=== PATIENT | female | born 1950 | race Caucasian/White ===

== ENCOUNTER → 2017-08-01 | Day surgery (SDC) | payer OTHER, MEDICARE | END | disposition home or self-care (01) | LOC: FIMAGING 14:50 | PROVIDERS: ATTEND Radiology Diagnostic Radiology | PROC: 02HV33Z Insertion of Infusion Device into Superior Vena Cava, Percutaneous Approach (ICD-10-PCS; principal; 2017-08-01) | DX: C21.0 Malignant neoplasm of anus, unspecified (principal) | CPT/HCPCS: 36569; 77001; C1751 ==

== ENCOUNTER 2017-08-30 20:15 | Inpatient (IN) | payer OTHER, MEDICARE ==
[2017-08-30] MEDS ORDERED: NS 1,000 ML IV ONE (20:50)
--- NOTE | 2017-08-30 20:58 | EDPHY ---
H & P Stated Complaint: Snt by [place] physician, chills, fever, abd pain, cramps. Time Seen by Provider: 08/30/17 20:40 HPI/ROS: CHIEF COMPLAINT: Diffuse abdominal pain HISTORY OF PRESENT ILLNESS: Patient is a 67-year-old female with a history of anal cancer currently receiving chemo and radiation therapy with Dr. Moreland. She has had chronic diffuse abdominal pain for the last several weeks that she describes as crampy and gassy. Over last 2 days however she is also became fatigued developed chills and today had a temperature max 100.8. She told Dr. Self who is on-call for [facility] who recommended she come to the ER to be evaluated. She is likely neutropenic. 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 She is due for her next IVIG infusion on Sunday. No vomiting. No diarrhea. No chest pain or shortness of breath. REVIEW OF SYSTEMS: Constitutional: See HPI EENTM: denies: blurred vision, double vision, nose congestion Respiratory: denies: cough, shortness of breath Cardiac: denies: chest pain, irregular heart rate, lightheadedness, palpitations Gastrointestinal/Abdominal: See HPI Genitourinary: denies: dysuria, frequency, hematuria, pain Musculoskeletal: denies: joint pain, muscle pain Skin: denies: lesions, rash, jaundice, bruising Neurological: denies: headache, numbness, paresthesia, tingling, dizziness, weakness Hematologic/Lymphatic: denies: blood clots, easy bleeding, easy bruising Immunologic/allergic: denies: HIV/AIDS, transplant EXAM: GENERAL: Well-appearing, well-nourished and in no acute distress. HEAD: Atraumatic, normocephalic. EYES: Pupils equal round and reactive to light, extraocular movements intact, sclera anicteric, conjunctiva are normal. ENT: TMs normal, nares patent, oropharynx clear without exudates. Moist mucous membranes. NECK: Normal range of motion, supple without lymphadenopathy or JVD. LUNGS: Breath sounds clear to auscultation bilaterally and equal. No wheezes rales or rhonchi. HEART: Regular rate and rhythm without murmurs, rubs or gallops. ABDOMEN: Mild diffuse tenderness, normoactive bowel sounds. No guarding, no rebound. No masses appreciated. BACK: No CVA tenderness, no spinal tenderness, step-offs or deformities EXTREMITIES: Normal range of motion, no pitting or edema. No clubbing or cyanosis. NEUROLOGICAL: Cranial nerves II through XII grossly intact. Normal speech, normal gait. 5/5 strength, normal movement in all extremities, normal sensation PSYCH: Normal mood, normal affect. SKIN: Warm, dry, normal turgor, no visible rashes or lesions. Source: Patient Exam Limitations: No limitations - Personal History Current Tetanus/Diphtheria Vaccine: Unsure Current Tetanus Diphtheria and Acellular Pertussis (TDAP): Unsure - Medical/Surgical History Hx Asthma: No Hx Chronic Respiratory Disease: No Hx Diabetes: Yes Hx Cardiac Disease: No Hx Renal Disease: No Hx Cirrhosis: No Hx Alcoholism: No Hx HIV/AIDS: No Hx Splenectomy or Spleen Trauma: No Other PMH: Anal CA, Type 1 DM, Psoriasis, panreatic insfficiency, hypothyroid, Immune defficiency. - Family History Significant Family History: No pertinent family hx - Social History Smoking Status: Former smoker Constitutional: Initial Vital Signs Temperature (C) 37.6 C 08/30/17 20:24 Heart Rate 124 H 08/30/17 20:24 Respiratory Rate 18 08/30/17 20:24 Blood Pressure 157/60 H 08/30/17 20:24 O2 Sat (%) 97 08/30/17 20:24 O2 Delivery Mode Room Air Allergies/Adverse Reactions: cefdinir Allergy (Verified 08/31/17 08:35) Other-Enter Comments erythromycin base [From Erythrocin] Allergy (Verified 08/31/17 08:37) Other-Enter Comments fentanyl Allergy (Verified 08/31/17 08:38) Other-Enter Comments insulin glargine [From Lantus] Allergy (Verified 08/31/17 08:37) Other-Enter Comments insulin lispro [From Humalog] Allergy (Verified 08/31/17 08:37) Other-Enter Comments NSAIDS (Non-Steroidal Anti-Inflamma Allergy (Verified 08/31/17 08:33) Other-Enter Comments Opioids - Morphine Analogues Allergy (Verified 08/31/17 08:35) Vomiting Penicillins Allergy (Verified 08/31/17 08:33) Hives rofecoxib [From Vioxx] Allergy (Verified 08/31/17 08:38) Other-Enter Comments Sulfa (Sulfonamide Antibiotics) Allergy (Verified 08/31/17 08:35) Hives valacyclovir [From Valtrex] Allergy (Verified 08/31/17 08:38) Unknown Home Medications: Medication Instructions Recorded Baclofen [Baclofen 10 mg (*)] 5 mg PO TID PRN 08/31/17 Cortisol Sr Compounded 2 cap PO DAILY@12 08/31/17 Cortisol Sr Compounded 3 cap PO DAILY 08/31/17 Insulin Aspart [novoLOG] 0 - 9 unit SQ QID 08/31/17 Insulin Detemir [Levemir] 9 unit SQ DAILY 08/31/17 Levothyroxine [Synthroid 75 mcg 75 mcg PO DAILY06 08/31/17 (*)] Lipase/Protease/Amylase [Zenpep Dr 2 each PO TID 08/31/17 25,000 Units Capsule] Prochlorperazine Maleate 10 mg PO Q6H PRN 08/31/17 [Compazine 10mg (*)] T3 Sr Compounded 2 cap PO BID 08/31/17 Medical Decision Making - Diagnostics Imaging: Discussed imaging studies w/ call center support consultant Radiologist ED Course/Re-evaluation: 10:[address] and lab findings with Dr. 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 Will admit her and start her on meropenem. She has a penicillin allergy list but states that she does not have any problems with the newer penicillins. 10:15 p.m. I spoke with Dr. Arrington who will admit and requests surgical consultation. 10:20 p.m. I discussed the case with Dr. Jackson who will consult. Differential Diagnosis: Partial list of the Differential diagnosis considered include but were not limited to; gastritis, typhlitis and although unlikely based on the history and physical exam, I also considered ischemia, obstruction, perforation. - Data Points Laboratory Results: Laboratory Results 08/31/17 05:40 08/31/17 05:40 Microbiology Results: MICROBIOLOGY 08/31/17 08:45 Stool Gastrointestinal Tract Panel (PCR) - Final No Organism Detected Medications Given: Potassium Chloride/Sodium Chloride (Ns W/ 20 Kcl/L) 1,000 mls @ 100 mls/hr IV CONT DAVIE Stop: 02/26/18 22:29 Last Admin: 09/01/17 02:58 Dose: 1,000 mls Meropenem 1 gm/ Sterile Water 20 mls @ 240 mls/hr IV Q8HRS DAVIE PRN Reason: Protocol Stop: 09/30/17 05:59 Last Admin: 09/01/17 05:00 Dose: 20 mls Levothyroxine Sodium (Synthroid) 75 mcg PO DAILY06 DAVIE Stop: 02/28/18 05:59 Last Admin: 09/01/17 05:02 Dose: 75 mcg Miscellaneous Medication (Cortisol Sr Compounded) 2 cap PO DAILY@12 DAVIE Stop: 02/27/18 11:59 Last Admin: 08/31/17 12:20 Dose: 2 cap Miscellaneous Medication (Cortisol Sr Compounded) 3 cap PO DAILY DAVIE Stop: 02/28/18 08:59 Last Admin: 09/01/17 05:03 Dose: 3 cap Miscellaneous Medication (Insulin Detemir [Levemir]) 9 unit SQ DAILY DAVIE Stop: 02/28/18 08:59 Last Admin: 09/01/17 05:03 Dose: 9 units Miscellaneous Medication (T3 Sr Compounded) 2 cap PO BID DAVIE Stop: 02/27/18 20:59 Last Admin: 09/01/17 05:02 Dose: 2 cap Phenazopyridine HCl (Pyridium) 100 mg PO PC PRN PRN Reason: pain Stop: 02/28/18 08:59 Last Admin: 09/01/17 02:57 Dose: 100 mg Discontinued Medications Sodium Chloride (Ns) 1,000 mls @ 0 mls/hr IV EDNOW ONE; Wide Open PRN Reason: Protocol Stop: 08/30/17 20:51 Last Admin: 08/30/17 21:16 Dose: 1,000 mls Meropenem 1 gm/ Sterile Water 20 mls @ 240 mls/hr IV EDNOW ONE PRN Reason: Protocol Stop: 08/30/17 22:18 Last Admin: 08/30/17 22:54 Dose: 20 mls Sodium Chloride (Ns) 500 mls @ 0 mls/hr IV ONCE ONE PRN Reason: Wide Open Stop: 08/30/17 22:44 Last Admin: 08/31/17 00:18 Dose: 500 mls Magnesium Sulfate/Dextrose (Magnesium Sulf 1 Gm (Premix)) 100 mls @ 100 mls/hr IV ONCE ONE Stop: 08/31/17 13:08 Last Admin: 08/31/17 12:19 Dose: 100 mls Potassium Chloride 10 meq/ (Sodium Chloride) 100 mls @ 100 mls/hr IV Q1H DAVIE Stop: 08/31/17 16:29 Last Admin: 08/31/17 18:12 Dose: 100 mls Departure - Departure Disposition: [facility] Inpatient Acute Clinical Impression: Neutropenic fever Ileitis, terminal Qualifiers: Digestive disease complication type: without complication Qualified Code(s): K50.00 - Crohn's disease of small intestine without complications Condition: Fair
[2017-08-30 21:11] LABS: PLATELET COUNT 102 10^3/uL (150-400)
[2017-08-30] MEDS ORDERED: IOPAMIDOL (ISOVUE-300) 100 ML BTL ONE (21:11)
[2017-08-30 21:18] LABS: INR 1.06 (0.83-1.16)
[2017-08-30] MEDS ORDERED: MEROPENEM 1 GM in STERILE WATER INJ 20 ML IV ONE (22:14)
[2017-08-30] MEDS ORDERED: ONDANSETRON DISINTEGRATING 4 MG TAB PO PRN (22:17)
[2017-08-30] MEDS ORDERED: ONDANSETRON 4 MG/2 ML VIAL IVP PRN (22:17)
[2017-08-30] MEDS ORDERED: ACETAMINOPHEN 325 MG TAB PO PRN (22:17)
[2017-08-30] MEDS ORDERED: NS 500 ML IV ONE (22:43)
--- NOTE | 2017-08-30 23:18 | PDGENHP ---
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 She recently started treatment with 5FU/MMC and XRT. She had severe side-effects from this including mucositis and rash. Then, over the last 3 days, she began to notice abdominal pain. Today she developed a T of 100.8 and was advised to come to the ED by her oncologist. She has chronic diarrhea and bloody stools and denies any significant changes in these symptoms. In the ED work-up was notable for neutropenia and ileal thickening on CT. History Information - Allergies/Home Medication List Allergies/Adverse Reactions: cefdinir Allergy (Verified 08/30/17 20:32) codeine Allergy (Verified 08/30/17 20:32) erythromycin base [From Erythrocin] Allergy (Verified 08/30/17 20:32) fentanyl Allergy (Verified 08/30/17 20:32) hydrocodone Allergy (Verified 08/30/17 20:32) hydromorphone Allergy (Verified 08/30/17 20:32) insulin glargine [From Lantus] Allergy (Verified 08/30/17 20:32) insulin lispro [From Humalog] Allergy (Verified 08/30/17 20:32) morphine Allergy (Verified 08/30/17 20:32) NSAIDS (Non-Steroidal Anti-Inflamma Allergy (Verified 08/30/17 20:32) oxycodone Allergy (Verified 08/30/17 20:32) Penicillins Allergy (Verified 08/30/17 20:32) rofecoxib [From Vioxx] Allergy (Verified 08/30/17 20:32) Sulfa (Sulfonamide Antibiotics) Allergy (Verified 08/30/17 20:32) valacyclovir [From Valtrex] Allergy (Verified 08/30/17 20:32) Home Medications: Baclofen 10 mg (*) 08/30/17 [Last Taken Unknown] Cortef 08/30/17 [Last Taken Unknown] Estradiol 08/30/17 [Last Taken Unknown] Gammagard Liquid 08/30/17 [Last Taken Unknown] Levemir 08/30/17 [Last Taken Unknown] Synthroid 08/30/17 [Last Taken Unknown] Zenpep Dr 25,000 Unit Capsule 08/30/17 [Last Taken Unknown] novoLOG 08/30/17 [Last Taken Unknown] I have personally reviewed and updated: family history, medical history - Past Medical History cancer, diabetes type 1 Additional medical history: CVID. Psoriasis - Surgical History Reports: hysterectomy - Family History Positive for: cancer, diabetes type I Additional family history: Gout. PUD - Social History Smoking Status: Former smoker Review of Systems Review of Systems: ROS: 10pt was reviewed & negative except for what was stated in HPI & below Physical Exam Physical Exam: Temp Pulse Resp BP Pulse Ox 37.6 C 106 H 20 151/63 H 97 08/30/17 20:24 08/30/17 22:00 08/30/17 22:00 08/30/17 22:00 08/30/17 22:00 Constitutional: appears nourished, uncomfortable Eyes: PERRL, EOMI Ears, Nose, Mouth, Throat: moist mucous membranes, no oral mucosal ulcers Cardiovascular: no murmur, rub, or gallop, tachycardia Respiratory: no respiratory distress, no rales or rhonchi Gastrointestinal: normoactive bowel sounds, tenderness (LLQ, RLQ) Skin: warm, normal color Musculoskeletal: full muscle strength, no muscle tenderness Neurologic: AAOx3, CN II-XII Intact Psychiatric: interacting appropriately, not anxious Lab Data & Imaging Review 08/30/17 21:00 08/30/17 21:00 WBC 1.99 10^3/uL (3.80-9.50) L 08/30/17 21:00 RBC 3.49 10^6/uL (4.18-5.33) L 08/30/17 21:00 Hgb 11.1 g/dL (12.6-16.3) L 08/30/17 21:00 Hct 31.6 % (38.0-47.0) L 08/30/17 21:00 MCV 90.5 fL (81.5-99.8) 08/30/17 21:00 MCH 31.8 pg (27.9-34.1) 08/30/17 21:00 MCHC 35.1 g/dL (32.4-36.7) 08/30/17 21:00 RDW 13.5 % (11.5-15.2) 08/30/17 21:00 Plt Count 102 10^3/uL (150-400) L 08/30/17 21:00 MPV 9.4 fL (8.7-11.7) 08/30/17 21:00 Neut % (Auto) Not Reported 08/30/17 21:00 Lymph % (Auto) Not Reported 08/30/17 21:00 [place] % (Auto) Not Reported 08/30/17 21:00 Eos % (Auto) Not Reported 08/30/17 21:00 Baso % (Auto) Not Reported 08/30/17 21:00 Nucleat RBC Rel Count 0.0 % (0.0-0.2) 08/30/17 21:00 Absolute Neuts (auto) Not Reported 08/30/17 21:00 Absolute Lymphs (auto) Not Reported 08/30/17 21:00 Absolute Monos (auto) Not Reported 08/30/17 21:00 Absolute Eos (auto) Not Reported 08/30/17 21:00 Absolute Basos (auto) Not Reported 08/30/17 21:00 Absolute Nucleated RBC 0.00 10^3/uL (0-0.01) 08/30/17 21:00 Immature Gran % Not Reported 08/30/17 21:00 Seg Neutrophils % 20 % 08/30/17 21:00 Band Neutrophils % 31 % 08/30/17 21:00 Lymphocytes % 34 % 08/30/17 21:00 Monocytes % 13 % 08/30/17 21:00 Eosinophils % 2 % 08/30/17 21:00 Immature Gran # Not Reported 08/30/17 21:00 Absolute Seg Neuts 0.40 10^/uL (1.70-6.50) L 08/30/17 21:00 Absolute Band Neuts 0.62 10^3/uL (0.00-0.70) 08/30/17 21:00 Absolute Lymphocytes 0.68 10^3/uL (1.00-3.00) L 08/30/17 21:00 Absolute Monocytes 0.26 10^3/uL (0.30-0.80) L 08/30/17 21:00 Absolute Eosinophils 0.04 10^3/uL (0.03-0.40) 08/30/17 21:00 Platelet Estimate DECREASED (ADEQ) L 08/30/17 21:00 Polychromasia 1+ H 08/30/17 21:00 PT 14.0 SEC (12.0-15.0) 08/30/17 21:00 INR 1.06 (0.83-1.16) 08/30/17 21:00 APTT 30.4 SEC (23.0-38.0) 08/30/17 21:00 VBG Lactic Acid 0.8 mmol/L (0.7-2.1) 08/30/17 21:00 Sodium 138 mEq/L (135-145) 08/30/17 21:00 Potassium 3.0 mEq/L (3.5-5.2) L 08/30/17 21:00 Chloride 104 mEq/L (97-110) 08/30/17 21:00 Carbon Dioxide 25 mEq/l (22-31) 08/30/17 21:00 Anion Gap 9 mEq/L (8-16) 08/30/17 21:00 BUN 7 mg/dL (7-23) 08/30/17 21:00 Creatinine 0.4 mg/dL (0.6-1.0) L 08/30/17 21:00 Estimated GFR > 60 08/30/17 21:00 Glucose 114 mg/dL (70-100) H 08/30/17 21:00 Calcium 8.1 mg/dL (8.5-10.4) L 08/30/17 21:00 Total Bilirubin 0.5 mg/dL (0.1-1.4) 08/30/17 21:00 Conjugated Bilirubin 0.1 mg/dL (0.0-0.5) 08/30/17 21:00 Unconjugated Bilirubin 0.4 mg/dL (0.0-1.1) 08/30/17 21:00 AST 13 IU/L (14-46) L 08/30/17 21:00 ALT 29 IU/L (9-52) 08/30/17 21:00 Alkaline Phosphatase 39 IU/L (38-126) 08/30/17 21:00 Total Protein 4.7 g/dL (6.3-8.2) L 08/30/17 21:00 Albumin 2.4 g/dL (3.5-5.0) L 08/30/17 21:00 Lipase 30 IU/L (23-300) 08/30/17 21:00 Urine Color YELLOW 02/22/18 22:09 Urine Appearance CLEAR 08/30/17 22:09 Urine pH 6.0 (5.0-7.5) 08/30/17 22:09 Ur Specific [place] 1.009 (1.002-1.030) 08/30/17 22:09 Urine Protein NEGATIVE (NEGATIVE) 08/30/17 22:09 Urine Ketones 2+ (NEGATIVE) H 08/30/17 22:09 Urine Blood NEGATIVE (NEGATIVE) 08/30/17 22:09 Urine Nitrate NEGATIVE (NEGATIVE) 08/30/17 22:09 Urine Bilirubin NEGATIVE (NEGATIVE) 08/30/17 22:09 Urine Urobilinogen NEGATIVE EU (0.2-1.0) 08/30/17 22:09 Ur Leukocyte Esterase NEGATIVE (NEGATIVE) 08/30/17 22:09 Urine RBC 1-3 /hpf (0-3) 08/30/17 22:09 Urine WBC 1-3 /hpf (0-3) 08/30/17 22:09 Ur Epithelial Cells TRACE /lpf (NONE-1+) 08/30/17 22:09 Urine Glucose NEGATIVE (NEGATIVE) 08/30/17 22:09 Imaging Review: Imaging Impressions Abdomen/Pelvis CT 08/30/17 20:51 Impression: 1. Long segment of significant bowel wall thickening in the distal ileum, which could be infectious or inflammatory. Question also some mild inflammatory change in the cecum. Ischemia cannot be excluded. No evidence for free intraperitoneal air or abscess. 2. Thickening in the region of the rectum and indistinct tissue planes, which could be related to the history given of a rectal carcinoma. 3. Other chronic findings, as above. Results called and discussed with Raulito Marcano M.D., on August 30, 2017 at 2150. E:amm Assessment & Plan Assessment: 67 yo F w/ hx anal squamous cell CA and T1DM presents with neutropenic fever and ileal thickening on CT. Plan: 1. Neutropenic fever - Possibly 2/[address] findings of ileal thickening. She denies any symptoms aside from abdominal pain at this time. - Blood cultures, UA, GI PCR - Meropenem 1 g IV q8h per Onc - Oncology consulted, appreciate assistance 2. Ileitis - Possible neutropenic enterocolitis as mentioned above. No evidence of free peritoneal air or abscess. - NPO, mIVF - GI PCR - Surgery consulted, appreciate assistance 3. Anal squamous cell CA - Recently started treatment with 5FU/MMC + XRT. Followed by Dr. Moreland and Dr. Self. - Oncology service consulted, appreciate assistance 4. T1DM - Patient manages this intensively (checks BG 8x daily) with insulin detemir and Novolog on a sliding scale basis. - Will order ACHS and PRN BG checks - Needs med reconciliation and will let patient direct insulin dosing per her wishes 5. Adrenal insufficiency - Patient takes specially formulated hydrocortisone XR as outpatient (30 mg @ 6 AM, 20 mg @ noon). - Will have patient continue home meds - Low threshold for stress dose steroids, currently hemodynamically stable Diet - NPO, mIVF Code - Full Ppx - SCDs Dispo - Admit under observation status
--- NOTE | 2017-08-31 01:02 | GCON ---
[f rep st] CONSULTATION DATE OF CONSULTATION: 08/30/2017 CHIEF COMPLAINT: Abdominal pain. HISTORY OF PRESENT ILLNESS: This is a 67-year-old female, who presents to the emergency department w ith acute on chronic abdominal pain. Briefly, the patient is currently receiving treatment for an an al cancer that was successfully debulked. Per the patient's report, it sounds like she presented to a surgeon in July for what she thought was a hemorrhoid. The surgeon quickly made the diagnosis o f anal cancer, subsequently had debulking, and is now undergoing chemotherapy and radiation. She had what appears to be an induction chemotherapy performed in the first week of August and since then has been receiving 5 days a week radiation treatment. She has had multiple issues, including intoler ance to the radiation, as well as multiple oral ulcers throughout her GI tract. She endorses having abdominal pain pretty much all the time that she relates a cramping secondary to the diarrhea, which she has had essentially since receiving the chemotherapy earlier this month. She states that over th e last few days this has gotten acutely worse to the point where the cramps are worse, more excruciat ing. She states that her last loose stool was yesterday, and that she has not been passing as much g as as previously. In addition to the pain, she also endorses fairly rigorous chills, which she state s are new, as well. 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 PAST MEDICAL HISTORY: 1. CVID. 2. Diabetes. 3. Anal cancer. 4. Disordered uterine bleeding. PAST SURGICAL HISTORY: Multiple CANVAS REPAIRER procedures in the past, ultimately leading to a complete hystere ctomy. She had an anal tumor removal from a rectal approach in July of this year. CURRENT MEDICATIONS: Include baclofen, Cortef, estradiol, Gammagard, Levemir, Synthroid, Zenpep, and NovoLog. ALLERGIES: Extensive, to cefdinir, codeine, erythromycin, fentanyl, hydrocodone, hydromorphone, insu willi glargine, insulin lispro, morphine, NSAIDs, oxycodone, penicillins, rofecoxib, sulfa, and valacyc lovir. FAMILY HISTORY: No family history of inflammatory bowel disease, including Crohn's and ulcerative co litis. SOCIAL HISTORY: Is here tonight with her partner and durable power of attorney law clerk. Denies illicit drug use. REVIEW OF SYSTEMS: A full 10-point review was performed. PHYSICAL EXAMINATION: VITAL SIGNS: Temperature 37.6, blood pressure 151/63, heart rate is 106, and she is 97% on room air. CONSTITUTIONAL: She is in no apparent distress. She otherwise appears comf ortable. EYES: Her pupils are equal, round, and reactive to light and accommodation. Her extraocul ar movements are intact. EARS, NOSE, MOUTH, THROAT: Multiple oral mucosal ulcers. Her mucous membr anes are dry. Her hearing is normal. CARDIOVASCULAR: She is tachycardic without murmur. RESPIRATO RY: She has no respiratory distress. No rales, rhonchi, and she is otherwise clear. GI: Multiple previous abdominal scars. She has normoactive bowel sounds. She is tender to palpation just beneath the umbilicus. No rebound tenderness or guarding are appreciated. SKIN: Warm. Normal color. No rashes. MUSCULOSKELETAL: Full strength. No weakness. Normal joint range of motion. NEUROLOGIC: Alert and oriented x3. Cranial nerves 2-12 intact. No weakness or numbness. PSYCH: She is interac ting appropriately. She is not anxious or encephalopathic. LYMPHATIC/HEMATOLOGIC/IMMUNOLOGIC: No ce rvical or groin lymphadenopathy is appreciated. LABORATORY DATA: White blood cell count 1.9 with an ANC count of 400. H and H are low at 11 and 31. Coags are normal with an INR of 1.06. Lactic acid is 0.8. Chemistries remarkable for a low potass ium at 3, creatinine of 0.4, and a low total protein of 4.7 with an albumin of 2.4. IMAGING DATA: A CT scan, noncontrast, of the abdomen and pelvis, the images of which were personally reviewed. This shows some terminal ileal thickening, as well as some right colon thickening. No fr ee air. No free fluid. ASSESSMENT AND PLAN: 67-year-old female, neutropenic, currently receiving chemotherapy and radiation for an anal cancer with worsening abdominal pain. On my examination, the patient is currently not p eritoneal, although she is tender. I think more than likely this represents typhlitis. I have discu ssed it with the medicine attending. Will plan to proceed with conservative treatment, including not margo by mouth, intravenous fluid hydration, and intravenous antibiotics. Will continue to follow the patient closely. I anticipate that she will continue to improve. She states that even prior to ear lier today she has made vast improvement in her exam and overall feeling. I did tell her that if she were to acutely worsen, she would more than likely warrant operative exploration to ensure that she did not have any ischemia to the right colon and distal ileum. She understands this and wishes to pr oceed. /[id number]/MODL
[2017-08-31] MEDS: NS W/ 20 KCl/L 1,000 ML IV SCH ×2 (01:20→12:19)
[2017-08-31] MEDS: MEROPENEM 1 GM in STERILE WATER INJ 20 ML IV SCH ×3 (05:47→22:13)
[2017-08-31 05:58] LABS: PLATELET COUNT 99 10^3/uL (150-400)
[2017-08-31] MEDS ORDERED: BACLOFEN 10 MG TAB PO PRN (09:19)
[2017-08-31] MEDS ORDERED: PROCHLORPERAZINE MALEATE 10 MG TAB PO PRN (09:19)
--- NOTE | 2017-08-31 10:19 | SOAPPROG ---
SOAP Progress Note Assessment/Plan: Assessment/Plan: 67yo F, likely Typhlitis, neutropenia - VSS, HDS - pain is about the same, although her exam I would say is improved. She is soft , minimally tender and without rebound - cont NPO, IVF, IV abx. Tolerating conservative management 08/31/17 10:18 Subjective: c/o leg cramps Objective: Vital Signs Temp Pulse Resp BP Pulse Ox 37.6 C 106 H 18 139/63 H 97 08/31/17 08:47 08/31/17 08:47 08/31/17 08:47 08/31/17 08:47 08/31/17 08:47 Laboratory Results 08/31/17 05:40 08/31/17 05:40 08/30/17 08/31/17 09/01/17 05:59 05:59 05:59 Intake Total 1439 Balance 1439 PT 14.0 SEC (12.0-15.0) 08/30/17 21:00 INR 1.06 (0.83-1.16) 08/30/17 21:00 ICD10 Worksheet Patient Problems: Problems Problem Status Onset Ileitis, terminal Acute Neutropenic fever Acute
[2017-08-31] MEDS ORDERED: PROTOCOL MAGNESIUM 1 DOSE IV PRN (10:46)
[2017-08-31] MEDS ORDERED: PROTOCOL CALCIUM 1 DOSE IV PRN (10:46)
[2017-08-31] MEDS ORDERED: PROTOCOL POTASSIUM 1 DOSE MISC PRN (10:46)
[2017-08-31] MEDS ORDERED: CALCIUM CHLORIDE 1 GM/10 ML INJ IV ONE (10:46)
[2017-08-31] MEDS ORDERED: CORTISOL PO SCH (12:00)
[2017-08-31] MEDS ORDERED: MAGNESIUM SULF 1 GM/DEXTROSE 100 ML IV ONE (12:09)
[2017-08-31] MEDS ORDERED: POTASSIUM Cl (KCl) 100 ML IV SCH (12:15)
[2017-08-31] MEDS: CORTISOL PO SCH (12:20)
--- NOTE | 2017-08-31 13:13 | HOSPPROG ---
Hospitalist Progress Note Assessment/Plan: 67 yo F w/ hx anal squamous cell CA and T1DM presents with neutropenic fever and ileal thickening on CT. Plan: 1. Neutropenic fever - Possibly 2/[address] findings of ileal thickening. She denies any symptoms aside from abdominal pain at this time. - Blood cultures, UA, GI PCR - Meropenem 1 g IV q8h per Onc - Oncology consulted, appreciate assistance 2. Ileitis - Possible neutropenic enterocolitis as mentioned above. No evidence of free peritoneal air or abscess. - NPO, mIVF - GI PCR - Surgery consulted, conservative mgmt 3. Anal squamous cell CA - Recently started treatment with 5FU/[facility] + XRT. Followed by Dr. Moreland and Dr. Self. - Oncology service consulted, appreciate assistance 4. T1DM - Patient manages this intensively (checks BG 8x daily) with insulin detemir and Novolog on a sliding scale basis. - ACHS and PRN BG checks 5. Adrenal insufficiency - Patient takes specially formulated hydrocortisone XR as outpatient (30 mg @ 6 AM, 20 mg @ noon). - Will have patient continue home meds - Low threshold for stress dose steroids, currently hemodynamically stable Diet - NPO, mIVF Code - Full Ppx - SCDs Dispo - change to inpatient Plan: per above cont NPO cont IVF cont IV abx conservative mgmt home meds reconciled at this time Check Magnesium Electrolyte protocol Subjective: still with abd pain. afebrile. Objective: Vital Signs Temp Pulse Resp BP Pulse Ox 36.9 C 97 18 144/59 H 97 08/31/17 12:27 08/31/17 12:27 08/31/17 12:27 08/31/17 12:27 08/31/17 12:27 Microbiology 08/31/17 08:45 Gastrointestinal Tract Panel (PCR) - Final Stool No Organism Detected Laboratory Results 08/31/17 05:40 08/31/17 05:40 08/30/17 08/31/17 09/01/17 05:59 05:59 05:59 Intake Total 1439 Balance 1439 PT 14.0 SEC (12.0-15.0) 08/30/17 21:00 INR 1.06 (0.83-1.16) 08/30/17 21:00 - Physical Exam Constitutional: no apparent distress Eyes: PERRL Ears, Nose, Mouth, Throat: moist mucous membranes, hearing normal Cardiovascular: regular rate and rhythym, no murmur, rub, or gallop Respiratory: no respiratory distress Gastrointestinal: normoactive bowel sounds, other (LLQ/RLQ tenderness), No guarding, No rebound, No distension Skin: warm Musculoskeletal: full muscle strength Neurologic: AAOx3 Psychiatric: interacting appropriately, not anxious, not encephalopathic, thought process linear Lymph, Heme, Immunologic: No petechiae ICD10 Worksheet Patient Problems: Problems Problem Status Onset Ileitis, terminal Acute Neutropenic fever Acute
[2017-08-31] MEDS: POTASSIUM Cl (KCl) 10 MEQ in NS 100 ML IV SCH ×4 (14:22→18:12)
--- NOTE | 2017-08-31 15:59 | ASMTCMCOM ---
CM Note CM Note Notes: Pt with hx of anal ca admitted for neutropenic fever and ileitis. Pt is currently on IV ABX and IV fluids. CM will follow for any DC needs. Date Signed: 08/31/2017 03:58 PM Electronically Signed By:Ambar Barrientos LCSW
--- NOTE | 2017-08-31 16:11 | PDMN ---
Medical Necessity Medical necessity: change to IP; los>2mn for neutropenic fever likely r/t neutropenic enterocolitis, and ileitis; requires blood cx's , IV abx, IVF, NPO, onc and surgical consults; comorbid anal CA, T1DM,and adrenal insufficiency; per order and progress note 08/31/17
[2017-08-31] MEDS: [UNRECOGNIZED DRUG - OTHER] PO SCH (18:02)
[2017-08-31] MEDS ORDERED: [UNRECOGNIZED DRUG - OTHER] PO SCH (21:00)
--- NOTE | 2017-08-31 21:36 | GCON ---
[f rep st] CONSULTATION ONCOLOGY INITIAL VISIT REASON FOR CONSULTATION: Evaluation and management of anal cancer. PRIMARY ONCOLOGIST: Dr. Willie Moreland. HISTORY OF PRESENT ILLNESS: The patient is a 67-year-old woman who was diagnosed with anal cancer Ja 2017. She had a gross resection and underwent adjuvant concurrent chemo and radiation. She re ceived 5-FU and mitomycin C on August 14 and she has completed 11 out of a total 17 radiation treatm ents. She had a lot of difficulty with chemotherapy with inability to eat, abdominal cramping, gas, and severe mouth sores. She has also had diarrhea on and off, last was yesterday, but denies any blo od. She continued to have abdominal cramping that kept getting worse and then yesterday she called m e with a fever of 101.8 and associated chills. I recommended that she go to the emergency room bec se her previous blood counts were low. While there, her ANC was right around 1000. A CT scan showed she had typhlitis. She was admitted to the hospital and IV antibiotics started. She is feeling bet ter although still a little tender. She still has a little mouth sore as well. ALLERGIES: She is allergic to multiple medications including erythromycin, fentanyl, Lantus and Kaci log, NSAIDs, morphine, penicillins, Vioxx, sulfa, valacyclovir. MEDICATION: Home medications include thyroid replacement, prochlorperazine, pancreas enzyme replacem ent, levothyroxine, Levemir and NovoLog insulin, cortisol compound, and baclofen. PAST MEDICAL HISTORY: Chronic illnesses include: 1. Anal cancer stage II, status post gross resection and now undergoing adjuvant radiation and concu rrent 5-FU and mitomycin. 2. Common variable immunodeficiency. 3. Psoriasis. 4. Insulin-dependent diabetes. 5. Celiac disease. 6. Adrenal insufficiency. 7. Hypothyroidism. FAMILY HISTORY: Significant for son with history of Valencia's sarcoma. SOCIAL HISTORY: She worked at [employer] Quit smoking in 1990. PAST SURGICAL HISTORY: Includes hysterectomy and the anal cancer removal. REVIEW OF SYSTEMS: A 10-point review of systems performed. Pertinent positives per History of Prese nt Illness, otherwise negative. PHYSICAL EXAM: She has been afebrile since admission. VITAL SIGNS: Temperature is 36.9, pulse 97, blood pressure 144/59. GENERAL: She is a well-appearing woman in no distress. HEENT: She has a mo uth sore primarily on the lateral portion of her tongue. Not a lot of other sores. No thrush. LUNG S: Clear. CARDIAC: Regular. ABDOMEN: Tender a little diffusely but more in the right lower quadr ant. No palpable mass. RECTAL: Did not do rectal exam today. NEUROLOGICAL: Grossly intact. LABS: Yesterday white count was just under 2,000, hemoglobin 11.1, platelet count 102,000. ANC was around 1,000 with a left shift. Today, white count is 2100, ANC is just over 1,000. Hemoglobin 10.4 , platelet 99,000. Chemistries: Albumin is a little low at 2.4, potassium 3.2. Lactic acid is norm al. CT of her abdomen showed a long segment of significant bowel wall thickening in the distal ileum and some thickening in the rectum, possibly consistent with radiation. IMPRESSION: 1. Enterocolitis. 2. Chemotherapy and radiation induced neutropenia. 3. Common variable immunodeficiency (CVID). 4. Anal cancer on therapy. 5. Diabetes. PLAN: She is at increased risk due to the underlying immunosuppression from both chemotherapy and al so inherited. I do not think we can get Gammagard while she is in the hospital, so she may have to d elay that and get it in outpatient clinic next week. She reports that is the only 1 that she has not had a reaction to. As for the enterocolitis, she seems to be doing well and tolerating meropenem we ll. Plan is to continue that. I told her that sometimes a couple days of bowel rest can help calm t hings down and then when she is feeling better, we can try to gently feed her. When she is able to e at, move her bowels without significant pain and her counts are better, then she would be ready to go home. /[id number]/MODL
[2017-09-01] MEDS: PHENAZOPYRIDINE HCL 100 MG TAB PO PRN ×3 (02:57→16:28)
[2017-09-01] MEDS: NS W/ 20 KCl/L 1,000 ML IV SCH ×2 (02:58→16:28)
[2017-09-01] MEDS: MEROPENEM 1 GM in STERILE WATER INJ 20 ML IV SCH ×3 (05:00→22:10)
[2017-09-01] MEDS: [UNRECOGNIZED DRUG - OTHER] PO SCH ×2 (05:02→17:59)
[2017-09-01] MEDS: LEVOTHYROXINE 75 MCG TAB PO SCH (05:02)
[2017-09-01] MEDS: CORTISOL PO SCH ×2 (05:03→12:03)
[2017-09-01] MEDS: INSULIN DETEMIR 9 UNIT SQ SCH (05:03)
[2017-09-01 05:10] LABS: PLATELET COUNT 102 10^3/uL (150-400)
[2017-09-01] MEDS ORDERED: LEVOTHYROXINE 75 MCG TAB PO SCH (06:00)
[2017-09-01] MEDS ORDERED: POTASSIUM CL 10 MEQ TAB PO ONE (08:23)
[2017-09-01] MEDS ORDERED: CORTISOL PO SCH (09:00)
[2017-09-01] MEDS ORDERED: INSULIN DETEMIR 9 UNIT SQ SCH (09:00)
--- NOTE | 2017-09-01 09:15 | SOAPPROG ---
SOAP Progress Note Assessment/Plan: Assessment: 1. Anal ca 2.CVID, wants to see if she can get gammagard here 3.Typhilitis, pain a bit better this am 4. Neutropenia, wbc improving Plan:Advance diet, continue Merrem for now, check on gammagard 09/01/17 09:12 Subjective: Pain a bit better Objective: Vital Signs Temp Pulse Resp BP Pulse Ox 98.5 F 95 18 136/58 H 97 09/01/17 08:01 09/01/17 08:01 09/01/17 08:01 09/01/17 08:01 09/01/17 08:01 Laboratory Results 09/01/17 04:55 09/01/17 04:55 08/31/17 09/01/17 09/02/17 05:59 05:59 05:59 Intake Total 715 Output Total 1200 Balance -485 PT 14.0 SEC (12.0-15.0) 08/30/17 21:00 INR 1.06 (0.83-1.16) 08/30/17 21:00 Physical Exam - Physical Exam General Appearance: alert, mild distress Respiratory: lungs clear, normal breath sounds Cardiac/Chest: regular rate, rhythm Abdomen: normal bowel sounds, non-tender, distended ICD10 Worksheet Patient Problems: Problems Problem Status Onset Ileitis, terminal Acute Neutropenic fever Acute
--- NOTE | 2017-09-01 11:46 | SOAPPROG ---
SOAP Progress Note Assessment/Plan: Assessment: 67 yo with anal cancer admitted with tephlitis Tolerated clears distension and pain improved Will continue to follow. Hopefully will resolve without surgical intervention S: Had chicken broth. Passing flatus. O: General: Pleasant, well-nourished and well-groomed woman sitting up in bed HENT: Normocephalic, no gross hearing deficits, mucous membranes moist, pupils equal and round, no scleral icterus Lungs: Clear to auscultation bilaterally, No increased work of breathing Cardiac: Regular rate, no peripheral edema Abdomen: Bowel sounds present, soft. Tender in right lower quadrant but no signs of rebound tenderness or peritonitis Skin: Warm and dry. MSK: Normal nails Psych: Mood and affect normal Neuro: Grossly intact Plan: 09/01/17 11:44 Objective: Vital Signs Temp Pulse Resp BP Pulse Ox 36.9 C 95 18 136/58 H 97 09/01/17 08:01 09/01/17 08:01 09/01/17 08:01 09/01/17 08:01 09/01/17 08:01 Laboratory Results 09/01/17 04:55 09/01/17 04:55 08/31/17 09/01/17 09/02/17 05:59 05:59 05:59 Intake Total 715 Output Total 1200 Balance -485 PT 14.0 SEC (12.0-15.0) 08/30/17 21:00 INR 1.06 (0.83-1.16) 08/30/17 21:00 ICD10 Worksheet Patient Problems: Problems Problem Status Onset Ileitis, terminal Acute Neutropenic fever Acute
[2017-09-01] MEDS: INSULIN ASPART SQ SCH ×3 (12:04→22:13)
[2017-09-01] MEDS: AMYLASE PO SCH ×2 (12:06→17:59)
[2017-09-01] MEDS: LIPASE PO SCH ×2 (12:06→17:59)
[2017-09-01] MEDS: PROTEASE PO SCH ×2 (12:06→17:59)
--- NOTE | 2017-09-01 12:43 | HOSPPROG ---
Hospitalist Progress Note Assessment/Plan: 67 yo F w/ hx anal squamous cell CA and T1DM presents with neutropenic fever and ileal thickening on CT. Plan: 1. Neutropenic fever - Possibly 2/[address] findings of ileal thickening. She denies any symptoms aside from abdominal pain at this time. - f/u Blood cultures, UA, -GI PCR negative - Meropenem 1 g IV q8h per Onc - Oncology consulted, appreciate assistance 2. Ileitis - Possible neutropenic enterocolitis as mentioned above. No evidence of free peritoneal air or abscess. - start clears, decrease IVF - GI PCR - Surgery consulted, conservative mgmt 3. Anal squamous cell CA - Recently started treatment with 5FU/[facility] + XRT. Followed by Dr. Moreland and Dr. Self. - Oncology service consulted, appreciate assistance 4. T1DM - Patient manages this intensively (checks BG 8x daily) with insulin detemir and Novolog on a sliding scale basis. - ACHS and PRN BG checks 5. Adrenal insufficiency - Patient takes specially formulated hydrocortisone XR as outpatient (30 mg @ 6 AM, 20 mg @ noon). - Will have patient continue home meds - Low threshold for stress dose steroids, currently hemodynamically stable Diet - NPO, mIVF Code - Full Ppx - SCDs, does not want Lovenox Dispo - cont inpatient Plan: per above CLD decrease IVF cont IV abx conservative mgmt appropriate home meds Replace Magnesium PRN Electrolyte protocol Subjective: abd pain is better. ready for clears Objective: Vital Signs Temp Pulse Resp BP Pulse Ox 36.9 C 95 18 136/58 H 97 09/01/17 08:01 09/01/17 08:01 09/01/17 08:01 09/01/17 08:01 09/01/17 08:01 Laboratory Results 09/01/17 04:55 09/01/17 04:55 08/31/17 09/01/17 09/02/17 05:59 05:59 05:59 Intake Total 715 Output Total 1200 Balance -485 PT 14.0 SEC (12.0-15.0) 08/30/17 21:00 INR 1.06 (0.83-1.16) 08/30/17 21:00 - Physical Exam Constitutional: no apparent distress Eyes: PERRL Ears, Nose, Mouth, Throat: moist mucous membranes, hearing normal Cardiovascular: regular rate and rhythym, No edema Respiratory: no respiratory distress, reduced air movement Gastrointestinal: tenderness (improving LLQ and RLQ tenderness) Skin: warm Neurologic: AAOx3 Psychiatric: interacting appropriately, not anxious, not encephalopathic Lymph, Heme, Immunologic: No petechiae ICD10 Worksheet Patient Problems: Problems Problem Status Onset Ileitis, terminal Acute Neutropenic fever Acute
[2017-09-02] MEDS: PHENAZOPYRIDINE HCL 100 MG TAB PO PRN ×2 (01:13→22:53)
[2017-09-02] MEDS: MEROPENEM 1 GM in STERILE WATER INJ 20 ML IV SCH ×3 (05:45→22:42)
[2017-09-02] MEDS: INSULIN DETEMIR 9 UNIT SQ SCH (05:46)
[2017-09-02] MEDS: CORTISOL PO SCH ×2 (05:48→12:47)
[2017-09-02] MEDS: [UNRECOGNIZED DRUG - OTHER] PO SCH ×2 (05:48→18:30)
[2017-09-02] MEDS: INSULIN ASPART SQ SCH ×5 (05:49→21:34)
[2017-09-02] MEDS: LEVOTHYROXINE 75 MCG TAB PO SCH (05:50)
[2017-09-02] MEDS: NS W/ 20 KCl/L 1,000 ML IV SCH (05:56)
[2017-09-02 06:06] LABS: PLATELET COUNT 135 10^3/uL (150-400)
[2017-09-02] MEDS ORDERED: POTASSIUM Cl (KCl) 100 ML IV SCH (09:18)
[2017-09-02] MEDS: AMYLASE PO SCH ×3 (09:20→18:30)
[2017-09-02] MEDS: LIPASE PO SCH ×3 (09:20→18:30)
[2017-09-02] MEDS: PROTEASE PO SCH ×3 (09:20→18:30)
[2017-09-02] MEDS: POTASSIUM Cl (KCl) 10 MEQ in NS 100 ML IV SCH ×3 (10:59→13:17)
--- NOTE | 2017-09-02 11:15 | SOAPPROG ---
SOAP Progress Note Assessment/Plan: Assessment: 1. Anal ca 2.CVID on every 21 day gammagard 3.Typhilitis, pain a bit worse this am 4. Neutropenia, wbc improving 5. DM 6.Exocrine pancreatic insufficiency Plan:Clear liquids for now, continue merrem, will need to receive gammagard as an outpt. Possible resumption RT tomorrow 09/01/17 09:12 09/02/17 11:11 Subjective: Some increase in RLQ pain Objective: Vital Signs Temp Pulse Resp BP Pulse Ox 97.7 F 90 17 116/49 L 96 09/02/17 08:45 09/02/17 08:45 09/02/17 08:45 09/02/17 08:45 09/02/17 08:45 Laboratory Results 09/02/17 05:43 09/02/17 05:43 09/01/17 09/02/17 09/03/17 05:59 05:59 05:59 Intake Total 715 1540 Output Total 1200 500 Balance -485 1040 PT 14.0 SEC (12.0-15.0) 08/30/17 21:00 INR 1.06 (0.83-1.16) 08/30/17 21:00 Physical Exam - Physical Exam General Appearance: mild distress Respiratory: lungs clear, normal breath sounds Cardiac/Chest: regular rate, rhythm Abdomen: normal bowel sounds, No non-tender (RLQ) ICD10 Worksheet Patient Problems: Problems Problem Status Onset Ileitis, terminal Acute Neutropenic fever Acute
--- NOTE | 2017-09-02 11:17 | SOAPPROG ---
SOAP Progress Note Assessment/Plan: Assessment: 67 yo with anal cancer admitted with tephlitis Tolerated clears Tried rice yesterday and had diarrhea and more abdominal pain so back on clears and better Will continue to follow. Hopefully will resolve without surgical intervention S: Flatus and stool O: General: Pleasant, well-nourished and well-groomed woman sitting up in bed HENT: Normocephalic, no gross hearing deficits, mucous membranes moist, pupils equal and round, no scleral icterus Lungs: Clear to auscultation bilaterally, No increased work of breathing Cardiac: Regular rate, no peripheral edema Abdomen: Bowel sounds present, soft. Tender in right lower quadrant but no signs of rebound tenderness or peritonitis. Overall distension stable, can see more swelling on right abdomen compared to the left Skin: Warm and dry. MSK: Normal nails Psych: Mood and affect normal Neuro: Grossly intact Plan: 09/01/17 11:44 09/02/17 11:14 Objective: Vital Signs Temp Pulse Resp BP Pulse Ox 36.5 C 90 17 116/49 L 96 09/02/17 08:45 09/02/17 08:45 09/02/17 08:45 09/02/17 08:45 09/02/17 08:45 Laboratory Results 09/02/17 05:43 09/02/17 05:43 09/01/17 09/02/17 09/03/17 05:59 05:59 05:59 Intake Total 715 1540 Output Total 1200 500 Balance -485 1040 PT 14.0 SEC (12.0-15.0) 08/30/17 21:00 INR 1.06 (0.83-1.16) 08/30/17 21:00 ICD10 Worksheet Patient Problems: Problems Problem Status Onset Ileitis, terminal Acute Neutropenic fever Acute
--- NOTE | 2017-09-02 12:11 | HOSPPROG ---
Hospitalist Progress Note Assessment/Plan: 67 yo F w/ hx anal squamous cell CA and T1DM presents with neutropenic fever and ileal thickening on CT. Plan: 1. Neutropenic fever - Likely 2/[address] findings of ileal thickening. She denies any symptoms aside from abdominal pain at this time. - f/u Blood cultures, UA, -GI PCR negative - Meropenem 1 g IV q8h - Oncology following 2. Ileitis - Possible neutropenic enterocolitis as mentioned above. No evidence of free peritoneal air or abscess. - return back to clears. Did not tolerate advancement - GI PCR - Surgery consulted, conservative mgmt 3. Anal squamous cell CA - Recently started treatment with 5FU/[facility] + XRT. Followed by Dr. Moreland and Dr. Self. - Oncology service consulted, appreciate assistance 4. T1DM - Patient manages this intensively (checks BG 8x daily) with insulin detemir and Novolog on a sliding scale basis. - ACHS and PRN BG checks 5. Adrenal insufficiency - Patient takes specially formulated hydrocortisone XR as outpatient (30 mg @ 6 AM, 20 mg @ noon). - Will have patient continue home meds - Low threshold for stress dose steroids, currently hemodynamically stable 6. Pedal edema: stop IVF Diet - Clears Code - Full Ppx - SCDs, does not want Lovenox Dispo - cont inpatient Plan: discussed with Oncology and nurse Subjective: Tried to advance diet overnight, but had worsen pain and diarrhea. she c/o abd pain Objective: Vital Signs Temp Pulse Resp BP Pulse Ox 36.5 C 90 17 116/49 L 96 09/02/17 08:45 09/02/17 08:45 09/02/17 08:45 09/02/17 08:45 09/02/17 08:45 Laboratory Results 09/02/17 05:43 09/02/17 05:43 09/01/17 09/02/17 09/03/17 05:59 05:59 05:59 Intake Total 715 1540 Output Total 1200 500 Balance -485 1040 PT 14.0 SEC (12.0-15.0) 08/30/17 21:00 INR 1.06 (0.83-1.16) 08/30/17 21:00 - Physical Exam Constitutional: no apparent distress Eyes: PERRL Ears, Nose, Mouth, Throat: moist mucous membranes Cardiovascular: regular rate and rhythym, edema (trace LE Bilaterally), No JVD Respiratory: no respiratory distress, no rales or rhonchi Gastrointestinal: tenderness (LLQ and RLQ (worse than yesterday)) Skin: warm Neurologic: AAOx3 Psychiatric: interacting appropriately, not anxious, not encephalopathic, thought process linear Lymph, Heme, Immunologic: No petechiae ICD10 Worksheet Patient Problems: Problems Problem Status Onset Ileitis, terminal Acute Neutropenic fever Acute
[2017-09-03] MEDS: POTASSIUM Cl (KCl) 10 MEQ in NS 100 ML IV SCH ×6 (00:07→16:50)
[2017-09-03] MEDS: MEROPENEM 1 GM in STERILE WATER INJ 20 ML IV SCH ×3 (05:56→23:08)
[2017-09-03] MEDS: INSULIN DETEMIR 9 UNIT SQ SCH (05:56)
[2017-09-03 05:59] LABS: PLATELET COUNT 147 10^3/uL (150-400)
[2017-09-03] MEDS: [UNRECOGNIZED DRUG - OTHER] PO SCH ×2 (05:59→18:55)
[2017-09-03] MEDS: LEVOTHYROXINE 75 MCG TAB PO SCH (05:59)
[2017-09-03] MEDS: CORTISOL PO SCH ×2 (05:59→11:30)
[2017-09-03] MEDS: INSULIN ASPART SQ SCH ×3 (06:00→21:12)
--- NOTE | 2017-09-03 09:31 | HOSPPROG ---
Hospitalist Progress Note Assessment/Plan: #Typhlitis; neg -conservative tx with Meropenem, Day 4 abx. Surgery following -not tolerating PO. Sips, chips today. Holding off on TPN #Diarrhea: neg GI PCR. PRN Immodium #Neutropenic fever: resolved. due to above. Neg GI panel. Blood/urine culture negative. ANC 1500 #Hypokalemia: K protocol #Anal cancer: s/p gross resection. Not tolerating Mitomycin. Receiving XRT #Nausea: Zofran #CVID: pharm trying to get Gammagard approved. Patient has severe HAs to other formulations. Patient rep visited her #Pancreatic insufficiency: cont pancreatic enzymes #Diet: sips/chips, IVFs #DVT ppx: SCDs #Disp: cont inpt admission for IV abx, serial abd exams Time spent on visit: 45 min reviewing records, d/w patient about treatment, Gammagard. D/w Dr. Castillo # Subjective: 7 episodes of diarrhea this morning. Very upset that she's not getting her outpatient IVIG formulation. Other types give headaches Objective: Vital Signs Temp Pulse Resp BP Pulse Ox 37.0 C 91 18 140/57 H 96 09/03/17 08:01 09/03/17 08:01 09/03/17 08:01 09/03/17 08:01 09/03/17 08:01 Laboratory Results 09/03/17 05:40 09/03/17 05:40 09/02/17 09/03/17 09/04/17 05:59 05:59 05:59 Intake Total 1540 1116 Output Total 500 1100 Balance 1040 16 PT 14.0 SEC (12.0-15.0) 08/30/17 21:00 INR 1.06 (0.83-1.16) 08/30/17 21:00 - Time Spent With Patient Time Spent with Patient: greater than 35 minutes Time Spent with Patient: Greater than 35 minutes spent on this patients care, greater than 50% of time spent counseling, educating, and coordinating care regarding the above mentioned plan. - Physical Exam Constitutional: uncomfortable Eyes: PERRL Ears, Nose, Mouth, Throat: dry mucous membranes Cardiovascular: regular rate and rhythym, no murmur, rub, or gallop Respiratory: no respiratory distress, no rales or rhonchi Gastrointestinal: other (LUQ TTP, quiet BS) Genitourinary: no bladder fullness Musculoskeletal: full muscle strength Neurologic: AAOx3, CN II-XII Intact Psychiatric: interacting appropriately, other (upset) ICD10 Worksheet Patient Problems: Problems Problem Status Onset Ileitis, terminal Acute Neutropenic fever Acute
--- NOTE | 2017-09-03 09:32 | HOSPPROG ---
Hospitalist Progress Note Assessment/Plan: #Typhlitis -conservative tx with Meropenem. Surgery following #Neutropenic fever: due to above. Neg GI panel. Blood/urine culture negative #Hypokalemia: K protocol #Pancytopenia: Objective: Vital Signs Temp Pulse Resp BP Pulse Ox 37.0 C 91 18 140/57 H 96 09/03/17 08:01 09/03/17 08:01 09/03/17 08:01 09/03/17 08:01 09/03/17 08:01 Laboratory Results 09/03/17 05:40 09/03/17 05:40 09/02/17 09/03/17 09/04/17 05:59 05:59 05:59 Intake Total 1540 1116 Output Total 500 1100 Balance 1040 16 PT 14.0 SEC (12.0-15.0) 08/30/17 21:00 INR 1.06 (0.83-1.16) 08/30/17 21:00 ICD10 Worksheet Patient Problems: Problems Problem Status Onset Ileitis, terminal Acute Neutropenic fever Acute
--- NOTE | 2017-09-03 10:52 | ASMTCMCOM ---
CM Note CM Note Notes: Patient is on K protocol for hypokalemia. CM will follow. Date Signed: 09/03/2017 10:52 AM Electronically Signed By:Farzana Lan LCSW
--- NOTE | 2017-09-03 11:08 | SOAPPROG ---
SOAP Progress Note Assessment/Plan: Assessment/Plan: 1. 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 Typhilitis - ongoing pain and diarrhea; not much better today continues on Merrem surgery following PCR negative; add Imodium Has been NPO 3. CVID - trying to get Gammagard here 4. Neutropenia - ANC 1500 today 5. DM 6. Exocrine pancreatic insuficiency 09/03/17 11:08 Subjective: C/O a lot of diarrhea today also has RLQ cramping Objective: Vital Signs Temp Pulse Resp BP Pulse Ox 37.0 C 91 18 140/57 H 96 09/03/17 08:01 09/03/17 08:01 09/03/17 08:01 09/03/17 08:01 09/03/17 08:01 Microbiology 09/01/17 04:45 Urine Culture - Final Urine,Clean Catch Laboratory Results 09/03/17 05:40 09/03/17 05:40 09/02/17 09/03/17 09/04/17 05:59 05:59 05:59 Intake Total 1540 1116 Output Total 500 1100 Balance 1040 16 PT 14.0 SEC (12.0-15.0) 08/30/17 21:00 INR 1.06 (0.83-1.16) 08/30/17 21:00 Gen - somewhat angry. NAD HEENT - anicteric, oral pharynx clear CV - RRR Resp - lungs clear Abd - soft, TTP RLQ ext - no edema ICD10 Worksheet Patient Problems: Problems Problem Status Onset Ileitis, terminal Acute Neutropenic fever Acute
[2017-09-03] MEDS: NS 1,000 ML IV SCH (11:23)
[2017-09-03] MEDS: LOPERAMIDE HCL 2 MG CAP PO PRN (11:29)
[2017-09-03] MEDS ORDERED: POTASSIUM Cl (KCl) 100 ML IV SCH (11:45)
--- NOTE | 2017-09-03 12:27 | SOAPPROG ---
SOAP Progress Note Assessment/Plan: Assessment/Plan: 67yo F, RLQ pain, typhlitis vs enterocolitis. - VSS, HDS - abdominal exam stable to improved from previous. Pt states that it worsened somewhat over the weekend - having diarrhea with any real PO intake, would maintain chips/sips. Still have a few more days before I think TPN required - cont current management, maybe try to feed again tomorrow or Wed depending on clinical picture 08/31/17 10:18 09/03/17 12:25 Subjective: did not tolerate rice over the weekend. Objective: Vital Signs Temp Pulse Resp BP Pulse Ox 37.0 C 91 18 140/57 H 96 09/03/17 08:01 09/03/17 08:01 09/03/17 08:01 09/03/17 08:01 09/03/17 08:01 Microbiology 09/01/17 04:45 Urine Culture - Final Urine,Clean Catch Laboratory Results 09/03/17 05:40 09/03/17 05:40 09/02/17 09/03/17 09/04/17 05:59 05:59 05:59 Intake Total 1540 1116 Output Total 500 1100 Balance 1040 16 PT 14.0 SEC (12.0-15.0) 08/30/17 21:00 INR 1.06 (0.83-1.16) 08/30/17 21:00 ICD10 Worksheet Patient Problems: Problems Problem Status Onset Ileitis, terminal Acute Neutropenic fever Acute
[2017-09-03] MEDS: LIPASE PO SCH ×3 (12:42→21:13)
[2017-09-03] MEDS: AMYLASE PO SCH ×3 (12:42→21:13)
[2017-09-03] MEDS: PROTEASE PO SCH ×3 (12:42→21:13)
[2017-09-03] MEDS ORDERED: MAGNESIUM SULF 1 GM/DEXTROSE 100 ML IV ONE (16:39)
[2017-09-04] MEDS: POTASSIUM Cl (KCl) 10 MEQ in NS 100 ML IV SCH ×6 (00:04→16:13)
[2017-09-04] MEDS: NS 1,000 ML IV SCH (02:58)
[2017-09-04] MEDS: [UNRECOGNIZED DRUG - OTHER] PO SCH ×2 (06:10→17:18)
[2017-09-04] MEDS: LEVOTHYROXINE 75 MCG TAB PO SCH (06:10)
[2017-09-04] MEDS: CORTISOL PO SCH ×2 (06:11→12:07)
[2017-09-04] MEDS: INSULIN DETEMIR 9 UNIT SQ SCH (06:11)
[2017-09-04] MEDS: INSULIN ASPART SQ SCH ×3 (06:13→18:02)
[2017-09-04] MEDS: MEROPENEM 1 GM in STERILE WATER INJ 20 ML IV SCH ×2 (06:14→14:30)
[2017-09-04 06:45] LABS: PLATELET COUNT 180 10^3/uL (150-400)
[2017-09-04] MEDS: PROTEASE PO SCH ×2 (10:09→17:20)
[2017-09-04] MEDS: LIPASE PO SCH ×2 (10:09→17:20)
[2017-09-04] MEDS: AMYLASE PO SCH ×2 (10:09→17:20)
[2017-09-04] MEDS ORDERED: POTASSIUM Cl (KCl) 100 ML IV SCH (10:45)
--- NOTE | 2017-09-04 13:29 | SOAPPROG ---
SOAP Progress Note Assessment/Plan: Assessment/Plan: 1. 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 Typhilitis - ongoing pain and diarrhea; bid improvement today continues on Merrem surgery following PCR negative NPO 3. CVID - Gammagard 4. Neutropenia - ANC 1600 today 5. DM 6. Exocrine pancreatic insufficiency 09/03/17 11:08 09/04/17 13:26 Subjective: Feeling weak today but no diarrhea mild abdominal cramping Objective: Vital Signs Temp Pulse Resp BP Pulse Ox 36.8 C 79 18 145/60 H 96 09/04/17 08:00 09/04/17 08:00 09/04/17 08:00 09/04/17 08:00 09/04/17 08:00 Microbiology 09/01/17 04:45 Urine Culture - Final Urine,Clean Catch Laboratory Results 09/04/17 06:30 09/04/17 06:30 09/03/17 09/04/17 09/05/17 05:59 05:59 05:59 Intake Total 1116 2033 Output Total 1100 1100 Balance 16 933 PT 14.0 SEC (12.0-15.0) 08/30/17 21:00 INR 1.06 (0.83-1.16) 08/30/17 21:00 Gen - sitting in chair, NAD HEENT - anicteric CV - RRR Chest - CTAB Abd - distended but soft, BS present but diminished, TTP in RLQ Ext - mild edema bilaterally ICD10 Worksheet Patient Problems: Problems Problem Status Onset Ileitis, terminal Acute Neutropenic fever Acute
[2017-09-04] MEDS ORDERED: IMMUNE GLOBULIN IV ONE ×2 (13:30)
[2017-09-04] MEDS ORDERED: IMMUN GLOB G(IGG)/GLY/IGA OV50 GAMMAGARD 30 GM/300 ML VIAL IV ONE (13:30)
[2017-09-04] MEDS ORDERED: [UNRECOGNIZED DRUG - OTHER] IV ONE (13:30)
[2017-09-04] MEDS ORDERED: [UNRECOGNIZED DRUG - OTHER] IV ONE (13:30)
--- NOTE | 2017-09-04 14:51 | SOAPPROG ---
SOAP Progress Note Assessment/Plan: Assessment/Plan: 67yo F, RLQ pain, typhlitis vs enterocolitis. - VSS, HDS - abdominal exam remains reassuring. still minimally tender in the RLQ but no rebound or guarding - passing flatus, no diarrhea overnight. - IVIG today - Would attempt to advance diet again tomorrow. Did discuss with the patient that she is likely to have diarrhea for some time and that this is ok as long as it is controllable and her abdominal pain is minimal. But I dont think she will have normal stools for some time. - Discussed with Ancelmo. 08/31/17 10:18 09/03/17 12:25 09/04/17 14:50 Subjective: feels better today, passing flatus but explosive diarrhea has abated. Objective: Vital Signs Temp Pulse Resp BP Pulse Ox 36.8 C 79 18 145/60 H 96 09/04/17 08:00 09/04/17 08:00 09/04/17 08:00 09/04/17 08:00 09/04/17 08:00 Microbiology 09/01/17 04:45 Urine Culture - Final Urine,Clean Catch Laboratory Results 09/04/17 06:30 09/04/17 06:30 09/03/17 09/04/17 09/05/17 05:59 05:59 05:59 Intake Total 1116 2033 Output Total 1100 1100 Balance 16 933 PT 14.0 SEC (12.0-15.0) 08/30/17 21:00 INR 1.06 (0.83-1.16) 08/30/17 21:00 ICD10 Worksheet Patient Problems: Problems Problem Status Onset Ileitis, terminal Acute Neutropenic fever Acute
--- NOTE | 2017-09-04 14:54 | ASMTCMCOM ---
CM Note CM Note Notes: Chart reviewed for discharge needs. 67 year old female with anal cancer who came in with abdominal pain and nausea. No therapies have been ordered. No needs identified as of yet. CM available should needs arise. Date Signed: 09/04/2017 02:54 PM Electronically Signed By:Monica Magana RN
--- NOTE | 2017-09-04 15:52 | HOSPPROG ---
Hospitalist Progress Note Assessment/Plan: #Typhlitis: -conservative tx with Meropenem, Day 5 abx. D/w Dr. Jackson and plan for advance diet tomorrow. #Diarrhea: improved. Neg GI PCR. PRN Immodium #Neutropenic fever: resolved. due to above. Neg GI panel. Blood/urine culture negative. ANC 1650 #Hypokalemia: K protocol #Anal cancer: s/p gross resection. Not tolerating Mitomycin. Receiving XRT #Nausea: Zofran #CVID: pharm approved Gammagard, will dose today. #Pancreatic insufficiency: cont pancreatic enzymes #Diet: sips/chips, IVFs #DVT ppx: SCDs #Disp: cont inpt admission for IV abx, serial abd exams. # Subjective: less diarrhea today Objective: Vital Signs Temp Pulse Resp BP Pulse Ox 36.8 C 79 18 145/60 H 96 09/04/17 08:00 09/04/17 08:00 09/04/17 08:00 09/04/17 08:00 09/04/17 08:00 Microbiology 09/01/17 04:45 Urine Culture - Final Urine,Clean Catch Laboratory Results 09/04/17 06:30 09/04/17 06:30 09/03/17 09/04/17 09/05/17 05:59 05:59 05:59 Intake Total 1116 2033 Output Total 1100 1100 Balance 16 933 PT 14.0 SEC (12.0-15.0) 08/30/17 21:00 INR 1.06 (0.83-1.16) 08/30/17 21:00 - Physical Exam Constitutional: no apparent distress Eyes: PERRL Ears, Nose, Mouth, Throat: moist mucous membranes Cardiovascular: regular rate and rhythym, no murmur, rub, or gallop Respiratory: no respiratory distress Gastrointestinal: normoactive bowel sounds, other (RLQ TTP, distended, but soft. Quiet BS) Genitourinary: no bladder fullness Musculoskeletal: full muscle strength Neurologic: AAOx3, CN II-XII Intact ICD10 Worksheet Patient Problems: Problems Problem Status Onset Ileitis, terminal Acute Neutropenic fever Acute
[2017-09-05] MEDS ORDERED: POTASSIUM Cl (KCl) 100 ML IV ONE (00:15)
[2017-09-05] MEDS ORDERED: POTASSIUM Cl (KCl) 50 ML IV SCH ×2 (00:15→08:00)
[2017-09-05] MEDS: MEROPENEM 1 GM in STERILE WATER INJ 20 ML IV SCH ×4 (00:36→22:04)
[2017-09-05] MEDS: NS 1,000 ML IV SCH ×2 (00:36→17:46)
[2017-09-05] MEDS ORDERED: POTASSIUM Cl (KCl) 10 MEQ in D5W 50 ML IV ONE (01:30)
[2017-09-05 05:35] LABS: PLATELET COUNT 170 10^3/uL (150-400)
[2017-09-05] MEDS: LEVOTHYROXINE 75 MCG TAB PO SCH (06:23)
[2017-09-05] MEDS: INSULIN DETEMIR 9 UNIT SQ SCH (06:24)
[2017-09-05] MEDS: CORTISOL PO SCH ×2 (06:24→11:20)
[2017-09-05] MEDS: [UNRECOGNIZED DRUG - OTHER] PO SCH ×2 (06:24→17:26)
[2017-09-05] MEDS: PROTEASE PO SCH ×3 (06:49→17:25)
[2017-09-05] MEDS: LIPASE PO SCH ×3 (06:49→17:25)
[2017-09-05] MEDS: AMYLASE PO SCH ×3 (06:49→17:25)
[2017-09-05] MEDS: INSULIN ASPART SQ SCH ×4 (07:09→20:08)
--- NOTE | 2017-09-05 08:30 | HOSPPROG ---
Hospitalist Progress Note Assessment/Plan: #Typhlitis: -no diarrhea today. Conservative tx with Meropenem, Day 6/14 of abx. Augmentin at DC -ADAT #Neutropenic fever: resolved. Neg GI panel, blood/urine cxs #Hypokalemia: K protocol #Anal cancer: s/p gross resection. 05/25 XRT; on hold with acute infection. Not tolerating Mitomycin. #Neutropenia: ANC 1100 #Nausea: Zofran #CVID: pharm approved Gammagard, will dose today. #Pancreatic insufficiency: cont pancreatic enzymes #Diet: sips/chips, IVFs #DVT ppx: SCDs #Disp: cont inpt admission for IV abx, serial abd exams. # Subjective: no diarrhea, passing gas. No nausea Objective: Vital Signs Temp Pulse Resp BP Pulse Ox 36.6 C 81 18 147/59 H 96 09/05/17 08:00 09/05/17 08:00 09/05/17 08:00 09/05/17 08:00 09/05/17 08:00 Laboratory Results 09/05/17 05:20 09/05/17 05:20 09/04/17 09/05/17 09/06/17 05:59 05:59 05:59 Intake Total 2033 Output Total 1100 2200 Balance 933 -2200 PT 14.0 SEC (12.0-15.0) 08/30/17 21:00 INR 1.06 (0.83-1.16) 08/30/17 21:00 - Physical Exam Constitutional: no apparent distress Eyes: PERRL Ears, Nose, Mouth, Throat: moist mucous membranes Cardiovascular: regular rate and rhythym, No edema Respiratory: no respiratory distress Gastrointestinal: other (less RLQ TTP today, +BS) Genitourinary: No vernon in urethra Musculoskeletal: full muscle strength Neurologic: AAOx3 Psychiatric: interacting appropriately ICD10 Worksheet Patient Problems: Problems Problem Status Onset Ileitis, terminal Acute Neutropenic fever Acute
[2017-09-05] MEDS: POTASSIUM Cl (KCl) 10 MEQ in NS 100 ML IV SCH ×3 (08:51→13:03)
--- NOTE | 2017-09-05 11:56 | SOAPPROG ---
SOAP Progress Note Assessment/Plan: Assessment: 67 yo with anal cancer admitted with tephlitis Tolerating water No pain today Will continue to follow. Hopefully will resolve without surgical intervention S: No pain. Can feel gas O: General: Pleasant, well-nourished and well-groomed woman sitting up in bed HENT: Normocephalic, no gross hearing deficits, mucous membranes moist, pupils equal and round, no scleral icterus Lungs: Clear to auscultation bilaterally, No increased work of breathing Cardiac: Regular rate, no peripheral edema Abdomen: Bowel sounds present, soft. Non-Tender in right lower quadrant but no signs of rebound tenderness or peritonitis. No distension today Skin: Warm and dry. MSK: Normal nails Psych: Mood and affect normal Neuro: Grossly intact Plan: 09/01/17 11:44 09/02/17 11:14 09/05/17 11:55 Objective: Vital Signs Temp Pulse Resp BP Pulse Ox 36.6 C 81 18 147/59 H 96 09/05/17 08:00 09/05/17 08:00 09/05/17 08:00 09/05/17 08:00 09/05/17 08:00 Laboratory Results 09/05/17 05:20 09/05/17 05:20 09/04/17 09/05/17 09/06/17 05:59 05:59 05:59 Intake Total 3 Output Total 1100 2200 Balance 933 -2200 PT 14.0 SEC (12.0-15.0) 08/30/17 21:00 INR 1.06 (0.83-1.16) 08/30/17 21:00 ICD10 Worksheet Patient Problems: Problems Problem Status Onset Ileitis, terminal Acute Neutropenic fever Acute
--- NOTE | 2017-09-05 13:28 | SOAPPROG ---
SOAP Progress Note Assessment/Plan: Assessment/Plan: 1. 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 Typhilitis - ongoing pain and diarrhea; cont improvement today continues on Merrem surgery following PCR negative advancing diet 3. CVID - Gammagard 4. Neutropenia - ANC 1100 today 5. DM 6. Exocrine pancreatic insufficiency Subjective: Feeling slightly better today still w mild RLQ tenderness Objective: Vital Signs Temp Pulse Resp BP Pulse Ox 36.6 C 81 18 147/59 H 96 09/05/17 08:00 09/05/17 08:00 09/05/17 08:00 09/05/17 08:00 09/05/17 08:00 Laboratory Results 09/05/17 05:20 09/05/17 05:20 09/04/17 09/05/17 09/06/17 05:59 05:59 05:59 Intake Total 2033 Output Total 1100 2200 Balance 933 -2200 PT 14.0 SEC (12.0-15.0) 08/30/17 21:00 INR 1.06 (0.83-1.16) 08/30/17 21:00 Gen - NAD HEENT - anicteric CV - RRR Abd - soft, mild TTP RLQ, no rebound, BS+ Ext - no sig edema ICD10 Worksheet Patient Problems: Problems Problem Status Onset Ileitis, terminal Acute Neutropenic fever Acute
[2017-09-05] MEDS: LOPERAMIDE HCL 2 MG CAP PO PRN (22:03)
[2017-09-06] MEDS: LEVOTHYROXINE 75 MCG TAB PO SCH (05:45)
[2017-09-06] MEDS: MEROPENEM 1 GM in STERILE WATER INJ 20 ML IV SCH ×3 (05:46→22:44)
[2017-09-06] MEDS: [UNRECOGNIZED DRUG - OTHER] PO SCH ×2 (05:52→18:28)
[2017-09-06] MEDS: CORTISOL PO SCH ×2 (05:52→11:56)
[2017-09-06] MEDS: INSULIN DETEMIR 9 UNIT SQ SCH (05:53)
[2017-09-06] MEDS: INSULIN ASPART SQ SCH ×4 (05:54→23:56)
[2017-09-06 05:59] LABS: PLATELET COUNT 158 10^3/uL (150-400)
[2017-09-06] MEDS ORDERED: POTASSIUM Cl (KCl) 50 ML IV SCH ×2 (08:00→21:00)
[2017-09-06] MEDS: POTASSIUM Cl (KCl) 10 MEQ in D5W 50 ML IV SCH ×3 (09:05→11:59)
[2017-09-06] MEDS: LIPASE PO SCH ×3 (09:10→16:27)
[2017-09-06] MEDS: AMYLASE PO SCH ×3 (09:10→16:27)
[2017-09-06] MEDS: PROTEASE PO SCH ×3 (09:10→16:27)
[2017-09-06] MEDS: LOPERAMIDE HCL 2 MG CAP PO PRN (10:42)
--- NOTE | 2017-09-06 11:05 | SOAPPROG ---
SOAP Progress Note Assessment/Plan: Assessment/Plan: 67yo F, RLQ pain, typhlitis vs enterocolitis. - VSS, HDS - abdominal exam reassuring today. Water appears to be ok but anything more ( [place], broth) seems to make her have watery diarrhea. Just took some loperamide today, hopefully will help. - need to consider TPN, patient in favor of it. She feels exhausted - Cont cons management. 08/31/17 10:18 09/03/17 12:25 09/04/17 14:50 09/06/17 11:02 Subjective: lot of diarrhea. Pain minimal Objective: Vital Signs Temp Pulse Resp BP Pulse Ox 37.1 C 76 16 143/53 H 97 09/06/17 07:47 09/06/17 07:47 09/06/17 07:47 09/06/17 07:47 09/06/17 07:47 Laboratory Results 09/06/17 05:53 09/06/17 05:53 09/05/17 09/06/17 09/07/17 05:59 05:59 05:59 Intake Total 2358 Output Total 2200 3400 Balance -2200 -1042 PT 14.0 SEC (12.0-15.0) 08/30/17 21:00 INR 1.06 (0.83-1.16) 08/30/17 21:00 ICD10 Worksheet Patient Problems: Problems Problem Status Onset Ileitis, terminal Acute Neutropenic fever Acute
--- NOTE | 2017-09-06 11:48 | HOSPPROG ---
Hospitalist Progress Note Assessment/Plan: #Typhlitis: -significant diarrhea in overnight. Cont Meropenem with allergies to several abx. Day 7/14 of abx. Augmentin at DC -start TPN #Neutropenic fever: resolved. Neg GI panel, blood/urine cxs #Hypokalemia: K protocol #Anal cancer: s/p gross resection. 05/25 XRT; on hold with acute infection. Not tolerating Mitomycin. #Neutropenia: ANC down to 770 today #Nausea: Zofran #CVID: received Gammaguard. Will stress-dose home steroids with acute infection #Pancreatic insufficiency: cont pancreatic enzymes #Diet: sips/chips, IVFs #DVT ppx: SCDs #Disp: cont inpt admission for IV abx, serial abd exams. Subjective: 7 episodes of explosive episodes diarrhea this morning Objective: Vital Signs Temp Pulse Resp BP Pulse Ox 37.1 C 76 16 143/53 H 97 09/06/17 07:47 09/06/17 07:47 09/06/17 07:47 09/06/17 07:47 09/06/17 07:47 Laboratory Results 09/06/17 05:53 09/06/17 05:53 09/05/17 09/06/17 09/07/17 05:59 05:59 05:59 Intake Total 2358 Output Total 2200 3400 Balance -2200 -1042 PT 14.0 SEC (12.0-15.0) 08/30/17 21:00 INR 1.06 (0.83-1.16) 08/30/17 21:00 - Physical Exam Constitutional: no apparent distress Eyes: PERRL Ears, Nose, Mouth, Throat: moist mucous membranes, hearing normal Cardiovascular: regular rate and rhythym, no murmur, rub, or gallop Respiratory: no respiratory distress, no rales or rhonchi Gastrointestinal: normoactive bowel sounds, soft, non-tender abdomen, No tenderness Genitourinary: no bladder fullness Skin: warm Musculoskeletal: full muscle strength Neurologic: AAOx3, CN II-XII Intact Psychiatric: anxious ICD10 Worksheet Patient Problems: Problems Problem Status Onset Ileitis, terminal Acute Neutropenic fever Acute
--- NOTE | 2017-09-06 13:13 | SOAPPROG ---
SOAP Progress Note Assessment/Plan: Assessment/Plan: 1. Anal SCC - s/p C1 mitomycin/5FU aug 6- ongoing concurrent XRT - has completed 11 out of 17 treatments has done poorly w chemo needs to cont hold XRT given #2 2. Typhilitis - ongoing pain and diarrhea; not doing better continues on Merrem but may need more anaerobic coverage? (d/w pharmacy) starting TPN also w add GCSF given dropping blood counts surgery following PCR negative 3. CVID - Gammagard given 4. Neutropenia - ANC 700 today 5. DM 6. Exocrine pancreatic insufficiency 09/06/17 13:10 09/06/17 13:13 Subjective: Had a bad night w more diarrhea Objective: Vital Signs Temp Pulse Resp BP Pulse Ox 37.1 C 76 16 143/53 H 97 09/06/17 07:47 09/06/17 07:47 09/06/17 07:47 09/06/17 07:47 09/06/17 07:47 Laboratory Results 09/06/17 05:53 09/06/17 05:53 09/05/17 09/06/17 09/07/17 05:59 05:59 05:59 Intake Total 2358 Output Total 2200 3400 Balance -2200 -1042 PT 14.0 SEC (12.0-15.0) 08/30/17 21:00 INR 1.06 (0.83-1.16) 08/30/17 21:00 Gen - NAD, fatigued appearing CV - RRR Chest - CTA anteriorly Abd - soft, TTP in RLQ no rebound, BS+ ICD10 Worksheet Patient Problems: Problems Problem Status Onset Ileitis, terminal Acute Neutropenic fever Acute
[2017-09-06] MEDS: FILGRASTIM-SNDZ 480 MCG/0.8 ML SYR SC SCH (14:10)
[2017-09-06] MEDS ORDERED: D50W 25 GM/50 ML SYR IVP PRN (15:03)
[2017-09-06] MEDS ORDERED: D5W NS 1,000 ML IV SCH (15:15)
[2017-09-06] MEDS: D50W 25 GM/50 ML VIAL IVP PRN ×2 (15:26→15:58)
[2017-09-06] MEDS ORDERED: D10W 1,000 ML IV PRN (15:59)
--- NOTE | 2017-09-06 16:12 | ASMTCMCOM ---
CM Note CM Note Notes: Pt started on TPN today. It is unclear for how long. No therapies yet. Pt's DC needs remain unclear. CM will continue to follow. Date Signed: 09/06/2017 04:12 PM Electronically Signed By:Ambar Barrientos LCSW
[2017-09-06] MEDS: POTASSIUM Cl (KCl) 50 ML IV SCH ×2 (20:56→23:12)
[2017-09-06] MEDS: TPN W/ FAMOTIDINE 1 EA BAG IV SCH (22:45)
[2017-09-06] MEDS: INSULIN REGULAR HUMAN 100 UNIT/ML UNIT SC SCH (23:57)
[2017-09-07] MEDS: INSULIN REGULAR HUMAN 100 UNIT/ML UNIT SC SCH ×5 (03:23→21:25)
[2017-09-07] MEDS: MEROPENEM 1 GM in STERILE WATER INJ 20 ML IV SCH ×3 (04:58→22:05)
[2017-09-07] MEDS: CORTISOL PO SCH ×2 (05:00→11:31)
[2017-09-07] MEDS: LEVOTHYROXINE 75 MCG TAB PO SCH (05:01)
[2017-09-07] MEDS: INSULIN DETEMIR 9 UNIT SQ SCH (05:01)
[2017-09-07] MEDS: [UNRECOGNIZED DRUG - OTHER] PO SCH ×2 (05:01→17:58)
[2017-09-07] MEDS: INSULIN ASPART SQ SCH ×5 (05:03→22:08)
[2017-09-07 05:11] LABS: INR 1.21 (0.83-1.16); PLATELET COUNT 157 10^3/uL (150-400); PROTIME(PATIENT) 15.5 SEC (12.0-15.0)
[2017-09-07] MEDS ORDERED: POTASSIUM Cl (KCl) 100 ML IV SCH ×2 (08:00→20:00)
[2017-09-07] MEDS ORDERED: K PHOS 10 MMOL in D5W 250 ML IV ONE (08:30)
[2017-09-07] MEDS: PROTEASE PO SCH ×3 (08:56→19:38)
[2017-09-07] MEDS: AMYLASE PO SCH ×3 (08:56→19:38)
[2017-09-07] MEDS: LIPASE PO SCH ×3 (08:56→19:38)
[2017-09-07] MEDS: POTASSIUM Cl (KCl) 10 MEQ in NS 100 ML IV SCH ×6 (09:03→23:22)
[2017-09-07] MEDS ORDERED: PHENAZOPYRIDINE HCL 100 MG TAB PO PRN (10:01)
[2017-09-07] MEDS ORDERED: NS 1,000 ML IV SCH (10:15)
[2017-09-07] MEDS: PHENAZOPYRIDINE HCL 100 MG TAB PO PRN (10:20)
--- NOTE | 2017-09-07 10:25 | ASMTCMCOM ---
CM Note CM Note Notes: Chart reviewed. Patient continues to be treated with TPN, ANTB and limited PO. No therapies involved to assess for other needs yet. CM to follow. Date Signed: 09/07/2017 10:25 AM Electronically Signed By:Monica Magana RN
--- NOTE | 2017-09-07 10:25 | SOAPPROG ---
SOAP Progress Note Assessment/Plan: Assessment/Plan: 67yo F, RLQ pain, typhlitis vs enterocolitis. - VSS, HDS - abdomen much softer today, really no tenderness in the RLQ although she does endorse some discomfort to deep palpation - started TPN yesterday, tolerating well - she still needs to try and eat, the diarrhea will subside over time and TPN is a temporary fix. I discussed this with her. She said she will try again maybe tomorrow, will cont clears today tho 08/31/17 10:18 09/03/17 12:25 09/04/17 14:50 09/06/17 11:02 09/07/17 10:23 Subjective: diarrhea has stopped Objective: Vital Signs Temp Pulse Resp BP Pulse Ox 36.8 C 84 18 141/71 H 94 09/07/17 09:26 09/07/17 09:26 09/07/17 09:26 09/07/17 09:26 09/07/17 09:26 Laboratory Results 09/07/17 04:50 09/07/17 04:50 09/06/17 09/07/17 09/08/17 05:59 05:59 05:59 Intake Total 2358 1102 Output Total 3400 Balance -1042 1102 PT 15.5 SEC (12.0-15.0) H 09/07/17 04:50 INR 1.21 (0.83-1.16) H 09/07/17 04:50 ICD10 Worksheet Patient Problems: Problems Problem Status Onset Ileitis, terminal Acute Neutropenic fever Acute
--- NOTE | 2017-09-07 13:34 | SOAPPROG ---
SOAP Progress Note Assessment/Plan: Assessment/Plan: 1. 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 Typhilitis - ongoing pain and diarrhea; stable today continues on Merrem on TPN added GCSF 09/06; denisse just get 1 more dose today given rapid response surgery following PCR negative 3. CVID - Gammagard given 4. Neutropenia - improved w GCSF 5. DM 6. Exocrine pancreatic insufficiency 09/07/17 13:32 Subjective: On TPN feeling better still NPO Objective: Vital Signs Temp Pulse Resp BP Pulse Ox 36.8 C 84 18 141/71 H 94 09/07/17 09:26 09/07/17 09:26 09/07/17 09:26 09/07/17 09:26 09/07/17 09:26 Laboratory Results 09/07/17 04:50 09/07/17 04:50 09/06/17 09/07/17 09/08/17 05:59 05:59 05:59 Intake Total 2358 1102 Output Total 3400 Balance -1042 1102 PT 15.5 SEC (12.0-15.0) H 09/07/17 04:50 INR 1.21 (0.83-1.16) H 09/07/17 04:50 Gen - NAD HEENT - anicteric abd - soft, less tenderness in RLQ ICD10 Worksheet Patient Problems: Problems Problem Status Onset Ileitis, terminal Acute Neutropenic fever Acute
--- NOTE | 2017-09-07 14:29 | HOSPPROG ---
Hospitalist Progress Note Assessment/Plan: #Typhlitis: -No diarrhea. Cont Meropenem (many abx allergies) Day 8/14 of abx. Augmentin at DC -TPN #Neutropenic fever: resolved. Neg GI panel, blood/urine cxs #Hypokalemia: add K to IVFs. Should improve on TPN #Anal cancer: s/p gross resection. 05/25 XRT; on hold with acute infection. Not tolerating Mitomycin. #Neutropenia: better with G-CSF #Nausea: Zofran #CVID: received Gammaguard. Will stress-dose home steroids with acute infection #Pancreatic insufficiency/DM: cont pancreatic enzymes. Levimer, pt dosing own SSI. Regular insulin added with TPN #Diet: sips/chips, IVFs #DVT ppx: SCDs #Disp: cont inpt admission for IV abx, serial abd exams. Subjective: afraid to eat. No diarrhea today Objective: Vital Signs Temp Pulse Resp BP Pulse Ox 36.8 C 84 18 141/71 H 94 09/07/17 09:26 09/07/17 09:26 09/07/17 09:26 09/07/17 09:26 09/07/17 09:26 Laboratory Results 09/07/17 04:50 09/07/17 04:50 09/06/17 09/07/17 09/08/17 05:59 05:59 05:59 Intake Total 2358 1102 Output Total 3400 Balance -1042 1102 PT 15.5 SEC (12.0-15.0) H 09/07/17 04:50 INR 1.21 (0.83-1.16) H 09/07/17 04:50 - Time Spent With Patient Time Spent with Patient: greater than 35 minutes Time Spent with Patient: Greater than 35 minutes spent on this patients care, greater than 50% of time spent counseling, educating, and coordinating care regarding the above mentioned plan. - Physical Exam Constitutional: other (anxious) Eyes: PERRL Ears, Nose, Mouth, Throat: moist mucous membranes, hearing normal Cardiovascular: regular rate and rhythym, no murmur, rub, or gallop Respiratory: no respiratory distress, no rales or rhonchi Gastrointestinal: normoactive bowel sounds, distension, other (mild RLQ TTP, no rebound/guarding) Genitourinary: no bladder fullness Skin: warm Neurologic: AAOx3, CN II-XII Intact Psychiatric: anxious ICD10 Worksheet Patient Problems: Problems Problem Status Onset Ileitis, terminal Acute Neutropenic fever Acute
[2017-09-07] MEDS ORDERED: D5W NS W/ 20 KCl/L 1,000 ML IV SCH (14:30)
[2017-09-07] MEDS ORDERED: NS W/ 20 KCl/L 1,000 ML IV SCH (14:30)
[2017-09-07] MEDS ORDERED: FILGRASTIM-SNDZ 300 MCG/0.5 ML SYR SC ONE (14:45)
[2017-09-07] MEDS: FILGRASTIM-SNDZ 480 MCG/0.8 ML SYR SC SCH (15:28)
--- NOTE | 2017-09-07 16:00 | ASMTCMCOM ---
CM Note CM Note Notes: Chart reviewed. Met with patient who is here with fever and ileitis. 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 Emotional support provided. No therapies ordered. She will trial clears tomorrow as she has not been able to tolerate orals. CM to follow for possible needs, Date Signed: 09/07/2017 03:59 PM Electronically Signed By:Monica Magana RN
[2017-09-07] MEDS ORDERED: POTASSIUM Cl (KCl) 50 ML IV SCH (19:15)
[2017-09-07] MEDS: NS W/ 20 KCl/L 1,000 ML IV SCH (21:14)
[2017-09-07] MEDS: TPN W/ FAMOTIDINE 1 EA BAG IV SCH (21:17)
[2017-09-08] MEDS: POTASSIUM Cl (KCl) 10 MEQ in NS 100 ML IV SCH ×2 (00:24→01:25)
[2017-09-08] MEDS: MEROPENEM 1 GM in STERILE WATER INJ 20 ML IV SCH ×3 (05:41→21:43)
[2017-09-08] MEDS: [UNRECOGNIZED DRUG - OTHER] PO SCH ×2 (05:43→17:05)
[2017-09-08] MEDS: LEVOTHYROXINE 75 MCG TAB PO SCH (05:44)
[2017-09-08] MEDS: CORTISOL PO SCH ×2 (05:44→11:57)
[2017-09-08] MEDS: INSULIN DETEMIR 9 UNIT SQ SCH (05:45)
[2017-09-08] MEDS: INSULIN ASPART SQ SCH ×4 (05:46→21:43)
[2017-09-08] MEDS: INSULIN REGULAR HUMAN 100 UNIT/ML UNIT SC SCH ×4 (05:47→21:45)
[2017-09-08 06:04] LABS: PLATELET COUNT 158 10^3/uL (150-400)
[2017-09-08 06:11] LABS: INR 1.08 (0.83-1.16); PROTIME(PATIENT) 14.2 SEC (12.0-15.0)
[2017-09-08] MEDS: AMYLASE PO SCH ×3 (07:47→17:08)
[2017-09-08] MEDS: PROTEASE PO SCH ×3 (07:47→17:08)
[2017-09-08] MEDS: LIPASE PO SCH ×3 (07:47→17:08)
[2017-09-08] MEDS ORDERED: POTASSIUM CL 10 MEQ TAB PO ONE (08:20)
[2017-09-08] MEDS ORDERED: ALTEPLASE 2 MG VIAL IVP PRN (08:51)
--- NOTE | 2017-09-08 09:10 | SOAPPROG ---
SOAP Progress Note Assessment/Plan: Assessment/Plan: 67yo F, RLQ pain, typhlitis vs enterocolitis. - VSS, HDS - abdomen remains very soft and reassuring - tolerating water, has not had any loose stools since stopping clears - needs to try and eat today. Has her own broth etc. OK by me - cont TPN until PO intake adequate. 08/31/17 10:18 09/03/17 12:25 09/04/17 14:50 09/06/17 11:02 09/07/17 10:23 09/08/17 09:08 Subjective: no loose stools in over 24hrs. Passing flatus. Tolerating water. Objective: Vital Signs Temp Pulse Resp BP Pulse Ox 36.9 C 84 16 146/66 H 95 09/08/17 09:03 09/08/17 09:03 09/08/17 09:03 09/08/17 09:03 09/08/17 09:03 Laboratory Results 09/08/17 05:40 09/08/17 05:30 09/07/17 09/08/17 09/09/17 05:59 05:59 05:59 Intake Total 1102 2656 Output Total 400 Balance 1102 2256 PT 14.2 SEC (12.0-15.0) 09/08/17 05:30 INR 1.08 (0.83-1.16) 09/08/17 05:30 ICD10 Worksheet Patient Problems: Problems Problem Status Onset Ileitis, terminal Acute Neutropenic fever Acute
--- NOTE | 2017-09-08 09:44 | SOAPPROG ---
SOAP Progress Note Assessment/Plan: E&M anal cancer * Anal SCC * s/p C1 mitomycin/5FU aug 14- * concurrent XRT - has completed 11 out of 17 treatments; currently on hold * Typhilitis * Improved but not resolved pain and diarrhea; * continue Merrem * Continue TPN * Stop GCSF 09/06; * surgery following * Try some PO today * CVID - Gammagard given on 09/04 * Diabetes * Exocrine pancreatic insufficiency Subjective: Diarrhea and bloating is better today. Wants to try broth. Still sore and tender. Objective: Vital Signs Temp Pulse Resp BP Pulse Ox 36.9 C 84 16 146/66 H 95 09/08/17 09:03 09/08/17 09:03 09/08/17 09:03 09/08/17 09:03 09/08/17 09:03 Laboratory Results 09/08/17 05:40 09/08/17 05:30 09/07/17 09/08/17 09/09/17 05:59 05:59 05:59 Intake Total 1102 2656 Output Total 400 Balance 1102 2256 PT 14.2 SEC (12.0-15.0) 09/08/17 05:30 INR 1.08 (0.83-1.16) 09/08/17 05:30 Laboratory Tests 09/07/17 09/08/17 04:50 05:40 WBC 12.31 H D 17.14 H Hgb 8.8 L 9.3 L Plt Count 157 158 Absolute Seg Neuts 11.31 H Absolute Band Neuts 3.26 H Laboratory Tests 09/06/17 09/07/17 09/07/17 18:30 04:50 18:00 Potassium 2.9 L 3.2 L 3.1 L 09/08/17 05:30 Potassium 3.8 Physical Exam - Physical Exam General Appearance: no apparent distress Respiratory: lungs clear Cardiac/Chest: regular rate, rhythm Abdomen: soft, No non-tender (RLQ) ICD10 Worksheet Patient Problems: Problems Problem Status Onset Ileitis, terminal Acute Neutropenic fever Acute
--- NOTE | 2017-09-08 14:51 | HOSPPROG ---
Hospitalist Progress Note Assessment/Plan: 67-year-old with recently diagnosed anal cancer the admitted with fevers, diarrhea and abdominal complaints. She was neutropenic on admission with typhlitis # anal cancer status post gross resection and currently dated she mail and radiation. * s/p C1 mitomycin/5FU aug 14- * concurrent XRT - has completed 11 out of 17 treatments; currently on hold # Typhilitis. Slowly improved but continues with mild pain and ongoing diarrhea with any p.o. Intake * Continue Merrem * Continue TPN until good p.o. Intake * Appreciate surgery and oncology follow-up * Trying broth today orally # common variable immune deficiency: Gammagard given on 09/04 # neutropenia status post G-CSF last dose 09/06 # adrenal insufficiency: * Currently on compounded cortisol, will continue same # pancreatic insufficiency complicated by diabetes. Currently on insulin and pancreatic enzymes # hypokalemia replacing aggressively given ongoing diarrhea # DVT ppx: SCDs Disposition: Patient will need to stay in-house until improved p.o. Intake. She is currently on TPN with minimal oral intake Subjective: Patient new to me and chart reviewed. Discussed with Dr. Self overall slight improvement today she was able to ambulate around the unit and is trying to eat some broth Objective: Vital Signs Temp Pulse Resp BP Pulse Ox 36.9 C 84 16 146/66 H 95 09/08/17 09:03 09/08/17 09:03 09/08/17 09:03 09/08/17 09:03 09/08/17 09:03 Laboratory Results 09/08/17 05:40 09/08/17 05:30 09/07/17 09/08/17 09/09/17 05:59 05:59 05:59 Intake Total 1102 2656 Output Total 400 Balance 1102 2256 PT 14.2 SEC (12.0-15.0) 09/08/17 05:30 INR 1.08 (0.83-1.16) 09/08/17 05:30 - Physical Exam Constitutional: chronically ill appearing, uncomfortable Eyes: PERRL, anicteric sclera, EOMI Ears, Nose, Mouth, Throat: moist mucous membranes, hearing normal, ears appear normal Cardiovascular: regular rate and rhythym Respiratory: no respiratory distress, clear to auscultation Gastrointestinal: tenderness, No normoactive bowel sounds, No distension Genitourinary: no bladder fullness Skin: warm, normal color Musculoskeletal: generalized weakness Neurologic: AAOx3 Psychiatric: interacting appropriately, not anxious ICD10 Worksheet Patient Problems: Problems Problem Status Onset Neutropenic fever Acute Ileitis, terminal Acute
[2017-09-08] MEDS: NS W/ 20 KCl/L 1,000 ML IV SCH (16:11)
[2017-09-08] MEDS: TPN W/ FAMOTIDINE 1 EA BAG IV SCH (21:42)
[2017-09-09] MEDS: MEROPENEM 1 GM in STERILE WATER INJ 20 ML IV SCH ×3 (05:03→21:31)
[2017-09-09] MEDS: NS W/ 20 KCl/L 1,000 ML IV SCH ×2 (05:04→18:34)
[2017-09-09] MEDS: INSULIN REGULAR HUMAN 100 UNIT/ML UNIT SC SCH ×4 (05:04→20:55)
[2017-09-09] MEDS: CORTISOL PO SCH ×2 (05:07→10:58)
[2017-09-09] MEDS: INSULIN DETEMIR 9 UNIT SQ SCH (05:07)
[2017-09-09] MEDS: [UNRECOGNIZED DRUG - OTHER] PO SCH ×2 (05:07→16:14)
[2017-09-09] MEDS: LEVOTHYROXINE 75 MCG TAB PO SCH (05:07)
[2017-09-09] MEDS: INSULIN ASPART SQ SCH ×4 (05:08→20:54)
[2017-09-09 05:32] LABS: PLATELET COUNT 153 10^3/uL (150-400)
[2017-09-09 05:40] LABS: INR 1.08 (0.83-1.16); PROTIME(PATIENT) 14.2 SEC (12.0-15.0)
[2017-09-09] MEDS: PROTEASE PO SCH ×3 (07:12→16:15)
[2017-09-09] MEDS: LIPASE PO SCH ×3 (07:12→16:15)
[2017-09-09] MEDS: AMYLASE PO SCH ×3 (07:12→16:15)
--- NOTE | 2017-09-09 10:19 | SOAPPROG ---
SOAP Progress Note Assessment/Plan: E&M anal cancer * Anal SCC * s/p C1 mitomycin/5FU aug 14- * concurrent XRT - has completed 11 out of 17 treatments; currently on hold * Typhilitis * Improved; still with pain but no diarrhea * Merrem day 11; can probably end it soon * Continue TPN * Stopped GCSF * surgery following * Advancing PO today * CVID - Gammagard given on 09/04 * Diabetes * Exocrine pancreatic insufficiency Subjective: Tolerated broth and jello with cramping and gas but no diarrhea. Going to try creamed rice (without dairy) today. Feeling better. Objective: Vital Signs Temp Pulse Resp BP Pulse Ox 36.4 C 87 14 110/66 96 09/09/17 07:56 09/09/17 07:56 09/09/17 07:56 09/09/17 07:56 09/09/17 07:56 Laboratory Results 09/09/17 04:58 09/09/17 04:58 09/08/17 09/09/17 09/10/17 05:59 05:59 05:59 Intake Total 2656 1467 Output Total 400 Balance 2256 1467 PT 14.2 SEC (12.0-15.0) 09/09/17 04:58 INR 1.08 (0.83-1.16) 09/09/17 04:58 Physical Exam - Physical Exam General Appearance: no apparent distress Respiratory: lungs clear Cardiac/Chest: regular rate, rhythm Abdomen: normal bowel sounds, soft, No non-tender ICD10 Worksheet Patient Problems: Problems Problem Status Onset Ileitis, terminal Acute Neutropenic fever Acute
--- NOTE | 2017-09-09 14:09 | HOSPPROG ---
Hospitalist Progress Note Assessment/Plan: 67-year-old with recently diagnosed anal cancer the admitted with fevers, diarrhea and abdominal complaints. She was neutropenic on admission with typhlitis. She is no longer neutropenic and is starting to challenge herself with small amounts of p.o. Intake so far she is tolerating it okay. She does have some abdominal distention and pain but no diarrhea. # anal cancer status post gross resection and currently dated she mail and radiation. * s/p C1 mitomycin/5FU aug 14- * concurrent XRT - has completed 11 out of 17 treatments; currently on hold she is reluctant to resume this # Typhilitis. Slowly improved but continues with mild pain and ongoing diarrhea with any p.o. Intake * Continue Merrem. Will defer to Oncology when to stop * Continue TPN until good p.o. Intake * Appreciate surgery and oncology follow-up * Trying plane cream of rice today orally # common variable immune deficiency: Gammagard given on 09/04 # neutropenia status post G-CSF last dose 09/06 # adrenal insufficiency: * Currently on compounded cortisol, will continue same # pancreatic insufficiency complicated by diabetes. Currently on insulin and pancreatic enzymes # hypokalemia replacing aggressively given ongoing diarrhea # DVT ppx: SCDs Disposition: Patient will need to stay in-house until improved p.o. Intake. She is currently on TPN with minimal oral intake Subjective: Patient has a little bit of abdominal distension and pain but has not had explosive diarrhea. Has a lot of questions about who she will be following up with regarding her electrolytes and labs. Objective: Vital Signs Temp Pulse Resp BP Pulse Ox 36.4 C 87 14 110/66 96 09/09/17 07:56 09/09/17 07:56 09/09/17 07:56 09/09/17 07:56 09/09/17 07:56 Laboratory Results 09/09/17 04:58 09/09/17 04:58 09/08/17 09/09/17 09/10/17 05:59 05:59 05:59 Intake Total 2656 1467 Output Total 400 Balance 2256 1467 PT 14.2 SEC (12.0-15.0) 09/09/17 04:58 INR 1.08 (0.83-1.16) 09/09/17 04:58 - Physical Exam Constitutional: chronically ill appearing Cardiovascular: regular rate and rhythym Respiratory: no respiratory distress Gastrointestinal: normoactive bowel sounds, distension (Mild) Neurologic: AAOx3 Psychiatric: interacting appropriately ICD10 Worksheet Patient Problems: Problems Problem Status Onset Neutropenic fever Acute Ileitis, terminal Acute
[2017-09-09] MEDS: TPN W/ FAMOTIDINE 1 EA BAG IV SCH (20:57)
[2017-09-10] MEDS: INSULIN REGULAR HUMAN 100 UNIT/ML UNIT SC SCH ×2 (05:03→13:42)
[2017-09-10] MEDS: INSULIN ASPART SQ SCH ×4 (05:04→21:59)
[2017-09-10] MEDS: MEROPENEM 1 GM in STERILE WATER INJ 20 ML IV SCH (05:07)
[2017-09-10] MEDS: LEVOTHYROXINE 75 MCG TAB PO SCH (05:08)
[2017-09-10] MEDS: [UNRECOGNIZED DRUG - OTHER] PO SCH ×2 (05:08→17:31)
[2017-09-10] MEDS: INSULIN DETEMIR 9 UNIT SQ SCH (05:09)
[2017-09-10] MEDS: CORTISOL PO SCH ×2 (05:09→13:41)
[2017-09-10 05:32] LABS: PLATELET COUNT 142 10^3/uL (150-400)
[2017-09-10 05:42] LABS: INR 1.03 (0.83-1.16); PROTIME(PATIENT) 13.7 SEC (12.0-15.0)
--- NOTE | 2017-09-10 06:22 | SOAPPROG ---
SOAP Progress Note Assessment/Plan: Assessment/Plan: 67yo F, RLQ pain, typhlitis vs enterocolitis. - VSS, HDS - abdomen a little distended today but soft and nontender - she has been tolerating JellO without issues, will start to advance tomorrow. Has a lot of home foods she wants to eat - making progress, encouraged more solid foods. May still have diarrhea but doesnt appear to be directly related to food and explosive 08/31/17 10:18 09/03/17 12:25 09/04/17 14:50 09/06/17 11:02 09/07/17 10:23 09/08/17 09:08 09/10/17 06:21 Subjective: a little bloated but otherwise stable Objective: Vital Signs Temp Pulse Resp BP Pulse Ox 36.3 C 99 16 120/89 H 98 09/10/17 05:48 09/10/17 05:48 09/10/17 05:48 09/10/17 05:48 09/10/17 05:48 Laboratory Results 09/10/17 05:20 09/10/17 05:20 09/09/17 09/10/17 09/11/17 05:59 05:59 05:59 Intake Total 1467 4514 Balance 1467 4514 PT 13.7 SEC (12.0-15.0) 09/10/17 05:20 INR 1.03 (0.83-1.16) 09/10/17 05:20 ICD10 Worksheet Patient Problems: Problems Problem Status Onset Ileitis, terminal Acute Neutropenic fever Acute
[2017-09-10] MEDS: LOPERAMIDE HCL 2 MG CAP PO PRN ×2 (07:25→07:28)
[2017-09-10] MEDS: PROTEASE PO SCH ×3 (07:31→16:17)
[2017-09-10] MEDS: LIPASE PO SCH ×3 (07:31→16:17)
[2017-09-10] MEDS: AMYLASE PO SCH ×3 (07:31→16:17)
[2017-09-10] MEDS: NS W/ 20 KCl/L 1,000 ML IV SCH ×2 (07:56→22:04)
--- NOTE | 2017-09-10 08:56 | SOAPPROG ---
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 Will continue to slowly advance diet over next several days. For now continue TPN. I think that it is reasonable to stop her Meropenem today. She is non neutropenic and afebrile. Will repeat her BMP. I suspect her elevated potassium is due to a hemolyzed specimen. She is not sure whether she is willing to resume and complete her planned chemotherapy and radiation at this point. She would like to discuss this with Dr. Nj once she feels better and has been discharged. Her questions were answered. 09/10/17 08:48 Subjective: Did not tolerate rice pudding. Had several episodes of diarrhea and cramping this AM. Now better following Imodium. Objective: Vital Signs Temp Pulse Resp BP Pulse Ox 36.3 C 99 16 120/89 H 98 09/10/17 05:48 09/10/17 05:48 09/10/17 05:48 09/10/17 05:48 09/10/17 05:48 Laboratory Results 09/10/17 05:20 09/10/17 05:20 09/09/17 09/10/17 09/11/17 05:59 05:59 05:59 Intake Total 1467 4514 Balance 1467 4514 PT 13.7 SEC (12.0-15.0) 09/10/17 05:20 INR 1.03 (0.83-1.16) 09/10/17 05:20 - Time Spent With Patient Time Spent With Patient: 25 minutes Physical Exam - Physical Exam General Appearance: alert, no apparent distress EENT: PERRL/EOMI Abdomen: normal bowel sounds (mild generalized tenderness. Mild distension. No gaurding or rebound), soft Skin: normal color Neuro/Psych: alert, normal mood/affect ICD10 Worksheet Patient Problems: Problems Problem Status Onset Ileitis, terminal Acute Neutropenic fever Acute
--- NOTE | 2017-09-10 11:01 | SOAPPROG ---
SOAP Progress Note Assessment/Plan: Assessment/Plan: 67yo F, RLQ pain, typhlitis vs enterocolitis. - VSS, HDS - abdomen still minimally distended but nontender - she is eating more and having intermittent stools, some loose, some more formed. - she is going to advance her diet with various foods from home - not much more to add from surgical standpoint. Poss home in a day or so if she continues to tolerate foodstuffs 08/31/17 10:18 09/03/17 12:25 09/04/17 14:50 09/06/17 11:02 09/07/17 10:23 09/08/17 09:08 09/10/17 06:21 09/10/17 11:00 Subjective: having some loose stools now, but much improved Objective: Vital Signs Temp Pulse Resp BP Pulse Ox 36.3 C 95 18 141/78 H 97 09/10/17 08:51 09/10/17 08:51 09/10/17 08:51 09/10/17 08:51 09/10/17 08:51 Laboratory Results 09/10/17 05:20 09/10/17 09:15 09/09/17 09/10/17 09/11/17 05:59 05:59 05:59 Intake Total 1467 4514 Balance 1467 4514 PT 13.7 SEC (12.0-15.0) 09/10/17 05:20 INR 1.03 (0.83-1.16) 09/10/17 05:20 ICD10 Worksheet Patient Problems: Problems Problem Status Onset Ileitis, terminal Acute Neutropenic fever Acute
--- NOTE | 2017-09-10 13:15 | HOSPPROG ---
Hospitalist Progress Note Assessment/Plan: 67-year-old with recently diagnosed anal cancer the admitted with fevers, diarrhea and abdominal complaints. She was neutropenic on admission with typhlitis. She is no longer neutropenic and is starting to challenge herself with small amounts of p.o. Intake so far she is tolerating it okay. She had some diarrhea this morning but her belly is less distended she wants to try eating oatmeal today ld # anal cancer status post gross resection and currently dated she mail and radiation. * s/p C1 mitomycin/5FU aug 14 * concurrent XRT - has completed 11 out of 17 treatments; currently on hold she is reluctant to resume this # Typhilitis. Slowly improved but continues with mild pain and ongoing diarrhea with any p.o. Intake * Continue Merrem. Will defer to Oncology when to stop * Continue TPN until good p.o. Intake * Appreciate surgery and oncology follow-up # common variable immune deficiency: Gammagard given on 09/04 # neutropenia status post G-CSF last dose 09/06 # adrenal insufficiency: * Currently on compounded cortisol, will continue same # pancreatic insufficiency complicated by diabetes. Currently on insulin and pancreatic enzymes # hypokalemia replacing aggressively given ongoing diarrhea # DVT ppx: SCDs Disposition: Patient will need to stay in-house until improved p.o. Intake. She is currently on TPN with minimal oral intake Subjective: Complains of some diarrhea this morning otherwise stable Objective: Vital Signs Temp Pulse Resp BP Pulse Ox 36.3 C 95 18 141/78 H 97 09/10/17 08:51 09/10/17 08:51 09/10/17 08:51 09/10/17 08:51 09/10/17 08:51 Laboratory Results 09/10/17 05:20 09/10/17 09:15 09/09/17 09/10/17 09/11/17 05:59 05:59 05:59 Intake Total 1467 4514 Balance 1467 4514 PT 13.7 SEC (12.0-15.0) 09/10/17 05:20 INR 1.03 (0.83-1.16) 09/10/17 05:20 - Physical Exam Constitutional: no apparent distress, chronically ill appearing Respiratory: no respiratory distress Gastrointestinal: normoactive bowel sounds, No distension ICD10 Worksheet Patient Problems: Problems Problem Status Onset Neutropenic fever Acute Ileitis, terminal Acute
--- NOTE | 2017-09-10 16:44 | ASMTCMCOM ---
CM Note CM Note Notes: Chart reviewed. Patient not yet meeting oral intake needs, TPN for nutrition. Plan not yet clear. CM to follow Date Signed: 09/10/2017 04:43 PM Electronically Signed By:Monica Magana RN
[2017-09-10] MEDS: TPN W/ FAMOTIDINE 1 EA BAG IV SCH (21:51)
[2017-09-11] MEDS: CORTISOL PO SCH ×2 (05:39→11:30)
[2017-09-11] MEDS: LOPERAMIDE HCL 2 MG CAP PO PRN (05:39)
[2017-09-11] MEDS: INSULIN DETEMIR 9 UNIT SQ SCH (05:40)
[2017-09-11] MEDS: LEVOTHYROXINE 75 MCG TAB PO SCH (05:40)
[2017-09-11] MEDS: [UNRECOGNIZED DRUG - OTHER] PO SCH ×2 (05:40→17:51)
[2017-09-11] MEDS: INSULIN ASPART SQ SCH ×4 (05:41→23:26)
[2017-09-11] MEDS: AMYLASE PO SCH ×3 (08:25→17:51)
[2017-09-11] MEDS: LIPASE PO SCH ×3 (08:25→17:51)
[2017-09-11] MEDS: PROTEASE PO SCH ×3 (08:25→17:51)
--- NOTE | 2017-09-11 10:13 | HOSPPROG ---
Hospitalist Progress Note Assessment/Plan: 67-year-old with recently diagnosed anal cancer the admitted with fevers, diarrhea and abdominal complaints. She was neutropenic on admission with typhlitis. She is no longer neutropenic and is starting to challenge herself with small amounts of p.o. Intake so far she is tolerating it okay. Tolerated a little bit of oatmeal yesterday and plans on adding protein today. Should finish her current bag of TPN tonight. If she is able to tolerate orals today will stop TPN tonight and plan on discharge tomorrow as long as she is able to get adequate oral, she has been through this before and knows what she needs to take in to be safe. # anal cancer status post gross resection and currently dated she mail and radiation. * s/p C1 mitomycin/5FU aug 14 * concurrent XRT - has completed 11 out of 17 treatments; currently on hold she is reluctant to resume this # Typhilitis. Slowly improved but continues with mild pain and ongoing diarrhea with any p.o. Intake * Continue Merrem. Will defer to Oncology when to stop * Continue TPN until good p.o. Intake * Appreciate surgery and oncology follow-up * Plan CBC and CMP on Sunday after discharge and again next week. Then I would defer to her oncologist regarding ongoing lab tests. 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 Currently on insulin and pancreatic enzymes # hypokalemia replacing aggressively given ongoing diarrhea # bladder spasms patient would like a prescription for Pyridium at discharge to use as needed # DVT ppx: SCDs Disposition: Patient will need to stay in-house until improved p.o. Intake. She is currently on TPN with minimal oral intake but improving daily. Will plan on stopping TPN after her current bag which will and late tonight. If she does well today and tomorrow morning she can likely be discharged by tomorrow afternoon Subjective: Patient feeling better still having some diarrhea but stools are hardening up. Her distention is slightly less she did take and a little bit of oatmeal yesterday. Objective: Vital Signs Temp Pulse Resp BP Pulse Ox 35.9 C L 88 18 149/63 H 97 09/11/17 08:41 09/11/17 08:41 09/11/17 08:41 09/11/17 08:41 09/11/17 08:41 Laboratory Results 09/10/17 05:20 09/11/17 05:35 09/10/17 09/11/17 09/12/17 05:59 05:59 05:59 Intake Total 4514 3731 Balance 4514 3731 PT 13.7 SEC (12.0-15.0) 09/10/17 05:20 INR 1.03 (0.83-1.16) 09/10/17 05:20 - Physical Exam Constitutional: chronically ill appearing, uncomfortable Ears, Nose, Mouth, Throat: moist mucous membranes Cardiovascular: regular rate and rhythym Respiratory: no respiratory distress, clear to auscultation Gastrointestinal: normoactive bowel sounds, No tenderness, No distension Genitourinary: no bladder fullness Skin: warm Neurologic: AAOx3 Psychiatric: interacting appropriately, not anxious ICD10 Worksheet Patient Problems: Problems Problem Status Onset Neutropenic fever Acute Ileitis, terminal Acute
--- NOTE | 2017-09-11 12:40 | SOAPPROG ---
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 TPN will stop tonight, and hopefully she will go home tomorrow. Her Meropenem has been stopped.. She is non neutropenic and afebrile. She is not sure whether she is willing to resume and complete her planned chemotherapy and radiation at this point. She would like to discuss this with Dr. Nj once she feels better and has been discharged. Her questions were answered. Subjective: Tolerating diet better. No beginning to have formed stools. Denies abdominal pain. Objective: Vital Signs Temp Pulse Resp BP Pulse Ox 35.9 C L 88 18 149/63 H 97 09/11/17 08:41 09/11/17 08:41 09/11/17 08:41 09/11/17 08:41 09/11/17 08:41 Laboratory Results 09/10/17 05:20 09/11/17 05:35 09/10/17 09/11/17 09/12/17 05:59 05:59 05:59 Intake Total 4514 3731 Balance 4514 3731 PT 13.7 SEC (12.0-15.0) 09/10/17 05:20 INR 1.03 (0.83-1.16) 09/10/17 05:20 - Time Spent With Patient Time Spent With Patient: 16 minutes Physical Exam - Physical Exam General Appearance: alert, no apparent distress EENT: PERRL/EOMI Abdomen: non-tender, soft Neuro/Psych: alert, normal mood/affect ICD10 Worksheet Patient Problems: Problems Problem Status Onset Ileitis, terminal Acute Neutropenic fever Acute
[2017-09-11] MEDS ORDERED: oxyCODONE IR 5 MG TAB PO PRN (14:41)
[2017-09-12] MEDS: [UNRECOGNIZED DRUG - OTHER] PO SCH ×2 (05:20→18:00)
[2017-09-12] MEDS: CORTISOL PO SCH ×2 (05:20→11:40)
[2017-09-12] MEDS: LEVOTHYROXINE 75 MCG TAB PO SCH (05:21)
[2017-09-12] MEDS: INSULIN DETEMIR 9 UNIT SQ SCH (05:21)
[2017-09-12] MEDS: PROTEASE PO SCH ×4 (08:00→18:02)
[2017-09-12] MEDS: AMYLASE PO SCH ×4 (08:00→18:02)
[2017-09-12] MEDS: LIPASE PO SCH ×4 (08:00→18:02)
[2017-09-12] MEDS: INSULIN ASPART SQ SCH ×4 (09:01→22:43)
--- NOTE | 2017-09-12 18:09 | HOSPPROG ---
Hospitalist Progress Note Assessment/Plan: 67-year-old with recently diagnosed anal cancer the admitted with fevers, diarrhea and abdominal complaints. She was neutropenic on admission with typhlitis. She is no longer neutropenic and is starting to challenge herself with small amounts of p.o. Intake so far she is tolerating it okay. Tolerated a little bit of oatmeal yesterday and plans on adding protein today. TN stopped , tolerating PO but some abd pain and no BM. # anal cancer status post gross resection, chemo, XRT - last chemo Aug 19 - XRT 05/25 - uncure if she will resume # typhlitis - off merrem - plan CBC and CMP on Sunday after discharge and again next week. Then I would defer to her oncologist regarding ongoing lab tests. 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 Currently on insulin and pancreatic enzymes # hypokalemia - better after replacement # bladder spasms patient would like a prescription for Pyridium at discharge to use as needed # DVT ppx: SCDs Subjective: eating better; no BM; abd distended, tender Objective: Vital Signs Temp Pulse Resp BP Pulse Ox 36.7 C 85 17 136/58 H 97 09/12/17 16:05 09/12/17 16:05 09/12/17 16:05 09/12/17 16:05 09/12/17 16:05 Laboratory Results 09/10/17 05:20 09/12/17 05:25 09/11/17 09/12/17 09/13/17 05:59 05:59 05:59 Intake Total 3731 5060 1500 Balance 3731 5060 1500 PT 13.7 SEC (12.0-15.0) 09/10/17 05:20 INR 1.03 (0.83-1.16) 09/10/17 05:[address] reviewed - Time Spent With Patient Time Spent with Patient: greater than 35 minutes Time Spent with Patient: Greater than 35 minutes spent on this patients care, greater than 50% of time spent counseling, educating, and coordinating care regarding the above mentioned plan. - Physical Exam Gastrointestinal: normoactive bowel sounds, distension (imld), other (soft, mild TTP diffusely) ICD10 Worksheet Patient Problems: Problems Problem Status Onset Neutropenic fever Acute Ileitis, terminal Acute
[2017-09-13 05:46] VITALS: TEMP 98.1
[2017-09-13] MEDS: LEVOTHYROXINE 75 MCG TAB PO SCH (05:47)
[2017-09-13] MEDS: [UNRECOGNIZED DRUG - OTHER] PO SCH (05:47)
[2017-09-13] MEDS: INSULIN DETEMIR 9 UNIT SQ SCH (05:48)
[2017-09-13] MEDS: CORTISOL PO SCH ×2 (05:48→11:40)
[2017-09-13] MEDS: INSULIN ASPART SQ SCH ×2 (08:07→11:41)
[2017-09-13] MEDS: AMYLASE PO SCH ×2 (08:08→11:40)
[2017-09-13] MEDS: LIPASE PO SCH ×2 (08:08→11:40)
[2017-09-13] MEDS: PROTEASE PO SCH ×2 (08:08→11:40)
[2017-09-13 08:13] VITALS: BP 160/62; PULSE 95; RESP 17; O2SAT 96
--- NOTE | 2017-09-13 11:28 | SOAPPROG ---
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 Feels ready to go home. She is not sure whether she is willing to resume and complete her planned radiation at this point. She would like to discuss this with Dr. Nj once she feels better and has been discharged. I have asked her to schedule follow up with Dr. Nj next week to discuss further. She agrees to this, and will call his office today to make the appointment. Her questions were answered. 09/13/17 11:23 Subjective: Feels well. Denies abdominal pain. Tolerating advancing diet. Feels ready to go home. Objective: Vital Signs Temp Pulse Resp BP Pulse Ox 36.7 C 95 17 160/62 H 96 09/13/17 08:00 09/13/17 08:00 09/13/17 08:00 09/13/17 08:00 09/13/17 08:00 Laboratory Results 09/10/17 05:20 09/12/17 05:25 09/12/17 09/13/17 09/14/17 05:59 05:59 05:59 Intake Total 5060 2500 Balance 5060 2500 PT 13.7 SEC (12.0-15.0) 09/10/17 05:20 INR 1.03 (0.83-1.16) 09/10/17 05:20 - Time Spent With Patient Time Spent With Patient: 15 minutes Physical Exam - Physical Exam General Appearance: alert, no apparent distress EENT: PERRL/EOMI Neuro/Psych: alert, normal mood/affect ICD10 Worksheet Patient Problems: Problems Problem Status Onset Ileitis, terminal Acute Neutropenic fever Acute
--- NOTE | 2017-09-13 13:58 | GDS ---
[f rep st] DISCHARGE SUMMARY ALL CONSULTATIONS: 1. Oncology. 2. General Surgery. ALL DIAGNOSES: 1. Anal cancer status post resection, chemo, and XRT. 2. Typhlitis. 3. Common variable immune deficiency. 4. Neutropenia. 5. Adrenal insufficiency. 6. Pancreatic insufficiency. 7. Hypokalemia. 8. Bladder spasms. ALL IMPORTANT IMAGING: Abdomen/pelvis CT on 08/30/2017, showing distal ileal wall thickening, as wel l as rectal area thickening. HOSPITAL COURSE: A 67-year-old female with anal cancer status post resection, currently undergoing X RT, presented with abdominal complaints. She was found to have neutropenic enterocolitis. She was t reated with meropenem. She was seen by General Surgery; no surgery was necessary. She improved sign ificantly throughout her stay. On the day of discharge, she is tolerating food without nausea and mckay ving relatively normal bowel movements. She did require TPN for some time. In terms of her anal cancer, she will follow up with Dr. Nj to decide on ongoing radiation. She will also follow up with Dr. Self for ongoing management of her cancer. Diabetes been reasonably well controlled. She has been dosing her own insulin here. She has common variable immune deficiency: She receives IVIG as an outpatient. Bladder spasms: I gave her a prescription for Pyridium for this. This has been a long-term issue fo r her. BILLING: I spent more than 30 minutes on the day of discharge coordinating care. /[id number]/MODL
--- NOTE | 2017-09-13 14:32 | ASMTCMCOM ---
CM Note CM Note Notes: Pt ready for Dc today. Pt will have no DC needs. Date Signed: 09/13/2017 02:31 PM Electronically Signed By:Ambar Barrientos LCSW
== END 2017-09-13 14:45 | disposition home or self-care (01) | DRG 392 ==
LOC: F1N 08-31 00:23 → OBSVTOIN 08-31 13:14
PROVIDERS: ADMIT Student in an Organized Health Care Education/Training Program; ATTEND Student in an Organized Health Care Education/Training Program
PROC: 02HV33Z Insertion of Infusion Device into Superior Vena Cava, Percutaneous Approach (ICD-10-PCS; principal; 2017-09-08)
DX: K52.9 Noninfective gastroenteritis and colitis, unspecified (principal); C21.0 Malignant neoplasm of anus, unspecified; D83.9 Common variable immunodeficiency, unspecified; E27.40 Unspecified adrenocortical insufficiency; D70.9 Neutropenia, unspecified; K86.89 Other specified diseases of pancreas; E87.6 Hypokalemia; N32.89 Other specified disorders of bladder; E10.9 Type 1 diabetes mellitus without complications; E03.9 Hypothyroidism, unspecified; Z87.891 Personal history of nicotine dependence; Z79.4 Long term (current) use of insulin
CPT/HCPCS: C1751; G0378; J1569; J2185; J3475; J3480; Q5101-ZA; Q9967

== ENCOUNTER 2018-12-08 20:49 | Emergency (ER) | payer OTHER, MEDICARE | END 2018-12-08 22:38 | disposition home or self-care (01) ==